=== PATIENT | male | born 1970 | race Caucasian/White ===

== ENCOUNTER 2024-03-13 15:28 | Outpatient (CLI) | payer OTHER, SELFPAY ==
[2024-03-13 16:03] LABS: Basophils # 0.1 K/mm3 (0-0.2); Basophils % 0.6 % (0.1-2.0); Eosinophils # 0.3 K/mm3 (0.0-0.4); Eosinophils % 2.8 % (0.1-12.0); Hematocrit 43.2 % (42.0-52.0); Hemoglobin 14.7 g/dL (14.1-18.0); Lymphocytes # 2.1 K/mm3 (0.7-4.5); Lymphocytes % 22.3 % (10-50); Mean Corpuscular Hemoglobin 28.8 pg (27.0-31.2); Mean Corpuscular Volume 84.8 fl (80-94); Mean Platelet Volume 7.8 fl (7.4-10.4); Monocytes # 0.5 K/mm3 (0.1-1.0); Monocytes % 5.4 % (1.7-9.3); Neutrophils # 6.5 K/mm3 (1.8-7.8); Platelet Count 239 K/mm3 (142-424); Red Cell Distribution Width 14.2 % (11.5-17.5); White Blood Count 9.5 K/mm3 (4.8-10.8)
[2024-03-13 16:24] LABS: Alanine Aminotransferase 25 U/L (12-78); Albumin Level 3.6 g/dl (3.5-5.0); Alkaline Phosphatase 78 U/L (38-126); Anion Gap 9.4 mEq/L (5-15); Aspartate Amino Transferase 22 U/L (17-59); Bilirubin,Direct 0.3 mg/dl (0.0-0.4); Bilirubin,Indirect 0.1 mg/dL (0.0-0.9); Bilirubin,Total 0.4 mg/dl (0.2-1.3); Bilirubin,Unconjugated 0.1 mg/dL (0.0-1.1); Blood Urea Nitrogen 12 mg/dl (9-20); Calcium 9.2 mg/dl (8.4-10.2); Carbon Dioxide 33 mmol/L (22.0-30.0); Chloride 99 mmol/L (98-107); Chol/HDL Ratio 3.5 (1-3.5); Cholesterol 151 mg/dl (140-200); Estimated Glomerular Filt Rate 118 ml/min (>60); GFR (African American) 142 ML/MIN (>60); Glucose 118 mg/dl (74-100); HDL Cholesterol 43 mg/dl (40-60); Iron 60 ug/dL (49-181); Magnesium 1.9 mg/dl (1.6-2.3); Potassium 4.4 mmoL/L (3.5-5.1); Sodium 137 mmol/L (136-145); Total Protein,Serum 5.9 g/dl (6.3-8.2); Triglycerides 303 mg/dl (30-150); VLDL Cholesterol 61 mg/dL (0-40)
[2024-03-13 16:33] LABS: NT Pro Brain Natriuretic Pep. < 20.0 pg/mL (0-125)
[2024-03-13 16:36] LABS: Direct LDL Cholesterol 89.15 mg/dL (100-129); Total Iron Binding Capacity 337 ug/dL (261-462)
[2024-03-13 16:41] LABS: Free T4 (Free Thyroxine) 0.84 ng/dl (0.78-2.19)
[2024-03-13 16:55] LABS: Thyroid Stimulating Hormone 1.06 uIU/mL (0.465-4.68)
[2024-03-13 16:59] LABS: Ferritin 46.7 ng/ml (17.9-464)
[2024-03-20 03:37] LABS: Renin Activity, Plasma 7.872 ng/mL/hr (0.167-5.380)
== END 2024-03-13 23:59 | disposition home or self-care (01) ==
LOC: LAB 15:30
PROVIDERS: PCP Family Medicine; Visit Provider Internal Medicine
DX: I10 Essential (primary) hypertension (principal); R06.00 Dyspnea, unspecified; R42 Dizziness and giddiness; R60.0 Localized edema; R94.31 Abnormal electrocardiogram [ECG] [EKG]; Z82.49 Family history of ischemic heart disease and other diseases of the circulatory system; R12 Heartburn
CPT/HCPCS: 36415; 80048; 80061; 80076; 82088; 82728; 83540; 83550; 83735; 83880; 84244; 84439; 84443; 85025

== ENCOUNTER 2024-03-26 08:08 | Outpatient (CLI) | payer OTHER, SELFPAY ==
--- NOTE | 2024-03-26 08:10 | CA_ITS ---
APPROVED REPORT EXAM: Comprehensive 2D, Doppler, and color-flow Echocardiogram Chief Administrative Officer: Ashley Araujo CRT Ht: 5 ft 8 in Wt: 376lbs BSA: 2.67 BP: 163/92 mmHg Indications: Shortness of Breath, Obesity, Fatigue, Peripheral Edema, Hypertension/HDD, FELIX M-Mode Dimensions RVDd 2.25 cm (0.9-2.6) LA Diam 3.73 cm (1.9-4.0) LVDd 5.29 cm (3.5-5.7) LVDs 3.59 cm (3.5-5.7) IVSd 1.85 cm (0.6-1.1) PWd 0.98 cm (0.6-1.1) EF (Teich) 59.90% FS 32.10% EDV (Teich) 134.80 mL TAPSE 1.50 (<1.7) ESV (Teich) 54.10 mL LV Diastology E Decel Time 150 (160-240 msec) E/A Ratio 1.13 MED A' 9.70 cm/s LAT A' 12.10 cm/s Aortic Valve AO Peak GR. 5.20 mmHg Mitral Valve MV E Max Zaid. 78.0 (40-130 cm/s) MV A Velocity 69.0 (40-130 cm/s) E/A Ratio 1.13 MV PHT 44.0 ms Pulmonary Valve PV Peak Velocity 67.0 (50-150 cm/s) Tricuspid Valve TR P. Velocity 154.00 cm/s RAP Estimate 10.00 mmHg RVSP 19.50 mmHg Left Ventricle The left ventricle is normal size. The left ventricular systolic function is normal. The left ventricular ejection fraction is within the normal range. There is normal left ventricular wall thickness. There is normal LV segmental wall motion. The left ventricular diastolic function is normal. LVEF is 55%. Right Ventricle The right ventricle is normal size. The right ventricular systolic function is normal. Atria The left atrium size is normal. The right atrium size is normal. There is no Doppler evidence of interatrial shunt. Aortic Valve The aortic valve opens well. There is no aortic valvular stenosis. No aortic regurgitation is present. Mitral Valve The mitral valve is normal in structure. No evidence of mitral valve stenosis. There is no mitral valve regurgitation noted. Tricuspid Valve The tricuspid valve leaflets are not well-visualized. Trace tricuspid regurgitation. There is insufficient TR jet to estimate RVSP. Pulmonic Valve The pulmonic valve leaflets are not well-visualized. Great Vessels The aortic root is normal in size. The ascending aorta is not well-visualized. IVC is normal in size and collapses >50% with inspiration. Pericardium There is no pericardial effusion. Other Information Study Quality: Technically Difficult Conclusion Technically difficult study due to poor accoustic windows. Normal biventricular systolic function. No significant valvular stenosis or regurgitation. The PV is not well-visualized. Electronically signed by : Chelly Pat MD 04/01/2024 14:36:40
--- NOTE | 2024-03-26 08:10 | CA_ITS ---
FINAL REPORT TECHNIQUE: Grayscale, color Doppler and duplex Doppler ultrasound of the kidneys, aorta and renal arteries was performed. Multiple velocities were measured. CLINICAL HISTORY: HTN,OBESITY LIMITED EXAM R/T BODY HABITUS COMPARISON: None FINDINGS: Exam limited secondary to patient body habitus. Aorta velocity: 47 cm/sec Right kidney: 11.8 cm. No evidence of hydronephrosis or mass. Right intrarenal RI: 0.63-0.71 Right renal artery velocity: 142 cm/sec. Right RAR (Renal artery-Aortic Ratio): 3.00 Left Kidney: 12.6 cm. No evidence of hydronephrosis or mass. Left intrarenal RI: 0.62-0.78 Left renal artery velocity: 91 cm/sec. Left RAR (Renal Artery-Aortic Ratio): 1.93 IMPRESSION: Exam limited secondary to patient body habitus, but no evidence of significant renal artery stenosis. Consider CTA if indicated. Reviewed, Interpreted and Dictated by Charito Wolfe MD Transcribed by Marietta Shah Authenticated and . [facility]
--- NOTE | 2024-03-26 09:16 | US_ITS ---
FINAL REPORT CLINICAL HISTORY: I10 - Essential (primary) hypertension COMPARISON: None FINDINGS: RENAL ULTRASOUND Ultrasound images of the kidneys were obtained. The right kidney measures 12.6 cm in length. The left kidney measures 11.4 cm in length. There is a likely a lower pole cyst on the left. There is no hydronephrosis bilaterally. IMPRESSION: Probable left lower pole cyst. Reviewed, Interpreted and Dictated by Charito Wolfe MD Transcribed by Marietta Shah Authenticated and [facility]
--- NOTE | 2024-03-26 09:17 | CT_ITS ---
APPROVED REPORT Voltage Regulator Assembler: CLINICAL INDICATION Chest Pain TECHNIQUE Image Acquisition: A 128 slice MDCT scanner (Qardioa View) was used for data acquisition. A noncontrast coronary calcium scan was performed. A CT attenuation threshold of 130 Hounsfield units (HU) was used for the detection of calcium in contiguous voxels of 1 sq mm in area to be counted as individual lesions. Bolus tracking in the ascending aorta with a threshold of 180 HU was performed. Immediately afterwards, ECG synchronized cardiac CT was then performed from the cardiac base to apex using retrospective gating with ECG tube current modulation. A total of 85 mL of Isovue 370 mg/mL contrast medium was administered at 5 mL/sec followed by a saline flush using a biphasic injection protocol. A tube voltage of 120 KVp was used. The patient received the following medications prior to the cardiac CT. 150 mg of oral metoprolol 15 mg of oral ivabradine 0.8 mg of sublingual nitroglycerin The average heart rate at the time of acquisition was 55 bpm and regular. Image Reconstruction Transaxial images were reconstructed at 0.67 mm slide thickness. Data was reviewed interactively on an advanced workstation capable of 2 and 3-dimensional displays in all conventional reconstruction formats, including multiplanar reformations, maximum intensity projections, curved multiplanar reformations, and volume rendered reconstructions. When applicable, selected routine images describing the relevant coronary anatomy and pathology were saved and sent to PACS. Complications None Technical Quality Overall image quality was good. Coronary artery opacification was adequate. Total DLP (Dose-Length Product) is 2325.4 mGy-cm. The reported value represents the total of one or more individual components during the CT acquisition of this date and at this time, and as such, the same value may appear in more than one CT report depending on the interpreting/reporting physicians. COMPARISON None FINDINGS CT Coronary Calcium Scoring LMA (Left Main Artery) = 0 LAD (Left Anterior Descending) = 0 LCX (Left Coronary Circumflex) = 0 RCA (Right Coronary Artery) = 0 Total Calcium Score = 0 using the AJ-130 method. The interpretation of the calcium heart score is based on the following continuum*: 0 = no calcified plaque detected (risk of coronary artery disease is very low ??? less than 5%) 1-10 = calcium detected in extremely minimal levels (risk of coronary diseases is still low ??? less than 10%) 11-100 = mild levels of plaque detected with certainty (mild or minimal narrowing of heart arteries is likely) 101-400 = definite,at least moderate levels of plaque detected (relatively high risk of a heart attack within 3-5 years) >401-999 = extensive levels of plaque detected (high risk of heart attack, high levels of vascular disease are present, high likelihood of at least one significant coronary narrowing) *The calcium heart score quantifies the burden of coronary calcification/plaque in the coronary arteries. The calcium heart score is not able to evaluate the presence or burden of non-calcified (i.e. soft) plaque. There is no identifiable calcification in the aortic valve, mitral annulus or mitral valve, pericardium, or myocardium. Coronary CT Angiography The coronary arterial system is right dominant. Quantitative Stenosis Grading: Left Main (LM): The left main originates normally from the left sinus of Valsalva. The LM bifurcates into the left anterior descending artery and left circumflex artery. The LM is patent with no evidence of atherosclerosis. Left Anterior Descending (LAD) and Diagonal Branches: The LAD gives off 3 diagonal branch(es). The LAD and its branches are patent with no evidence of atherosclerosis. There is no evidence of LAD-myocardial bridge. Left Circumflex (LCX) and Obtuse Marginals (OM): The LCX gives off 2 Obtuse Marginal (OM) branch(es). The LCX and its branches are patent with no evidence of atherosclerosis. Right Coronary Artery (RCA): The RCA originates normally from the right sinus of Valsalva. The RCA gives off a posterior descending artery (PDA) and posterolateral (PL) branches. The RCA and its branches are patent with no evidence of atherosclerosis. Non-Coronary Cardiac Findings: Analysis of the left ventricular (LV) structure and function was performed after 3-D reconstruction of the LV from axial images, with user-corrected automatic contouring for assessment of LV volumes and user-defined reconstruction from oblique planes for measurement of 3-D cardiac structure and function. -The left ventricle systolic function is normal. -There is no left atrial appendage filling defect. Two right pulmonary veins and two left pulmonary veins drain normally into the left atrium. -No pericardial thickening or calcification. -Central and branch pulmonary arteries in the [id number] are unremarkable. -Thoracic aorta within the visualized thoracic aortic-branches in the [id number] is unremarkable. Extracardiac Structures No significant extra-cardiac findings. Note, however, that this study is focused on the cardiac findings. IMPRESSION -Absence of coronary calcification with an Agatston score = 0 using the AJ-130 method. -No evidence of significant flow-limiting atherosclerosis of the coronary arteries. -No evidence of coronary anomalies or myocardial bridges. -CAD-RADS 0. Management recommendations per ACC/AHA guidelines*, as clinically appropriate. *Recommendations: CAD RADS 0: Reassurance. Consider non-atherosclerotic causes of chest pain. CAD RADS 1: Consider non-atherosclerotic causes of chest pain. Consider preventive therapy and risk factor modification. CAD RADS 2: Consider non-atherosclerotic causes of chest pain. Consider preventive therapy and risk factor modification, particularly for patients with nonobstructive plaque in multiple segments. CAD RADS 3: Consider further functional testing. Consider symptom-guided anti-ischemic and preventive pharmacotherapy as well as risk factor modification per published guideline statements. CAD RADS 4A: Consider further functional testing or invasive coronary angiography with revascularization per published guideline statements. Consider symptom-guided anti-ischemic and preventive pharmacotherapy as well as risk factor modification per published guideline statements. CAD RADS 4B: Invasive coronary angiography recommended with revascularization per published guideline statements. Consider symptom-guided anti-ischemic and preventive pharmacotherapy as well as risk factor modification per published guideline statements. CAD RADS 5: Consider invasive angiography and/or viability assessment with revascularization per published guideline statements. Consider symptom-guided anti-ischemic and preventive pharmacotherapy as well as risk factor modification per published guideline statements. CRITICAL RESULT None COMMUNICATION Per this written report The coronary and cardiac findings of this CCTA were reviewed, reported, and signed by Faizan Pat MD (Garment Folder) Conclusion Electronically signed by : Chelly Pat MD 04/01/2024 12:23:22
[2024-03-26] MEDS: IOPAMIDOL-370 (76%);100ML BOTTLE 85 ML IV (12:51)
[2024-03-26] MEDS: SODIUM CHLORIDE 0.9% 10ML SYR (RAD ONLY) 10 ML IV (12:51)
[2024-03-26] MEDS: 0.9 % SODIUM CHLORIDE 50 ML VIAL IV (12:51)
== END 2024-03-26 23:59 | disposition home or self-care (01) ==
LOC: RT 08:09
PROVIDERS: PCP Family Medicine; Visit Provider Internal Medicine
DX: I10 Essential (primary) hypertension (principal); R06.00 Dyspnea, unspecified; R42 Dizziness and giddiness; R60.0 Localized edema; R94.31 Abnormal electrocardiogram [ECG] [EKG]; R12 Heartburn; Z82.49 Family history of ischemic heart disease and other diseases of the circulatory system; R06.02 Shortness of breath
CPT/HCPCS: 75574; 76770; 93306; 93976; Q9967

== ENCOUNTER 2024-03-26 11:24 | Outpatient (CLI) | payer OTHER, SELFPAY ==
[2024-03-26 10:40] VITALS: BP 167/89; PULSE 79; RESP 18; TEMP 36.6; O2SAT 96
[2024-03-26] MEDS: METOPROLOL TARTRATE 25MG TABLET 25 MG ×2 (10:40→11:32)
[2024-03-26] MEDS: METOPROLOL TARTRATE 50MG TABLET 50 MG (10:40)
[2024-03-26 10:45] VITALS: BMI 54.7
[2024-03-26] MEDS: IVABRADINE HCL 7.5MG TABLET 15 MG PO (11:28)
[2024-03-26] MEDS: METOPROLOL TARTRATE 50MG TABLET PO (11:32)
[2024-03-26 12:30] VITALS: BP 172/86; PULSE 60; RESP 18; O2SAT 97
[2024-03-26 12:39] VITALS: BP 144/87; PULSE 61; RESP 18; O2SAT 98
[2024-03-26] MEDS: NITROGLYCERIN 0.4MG SL TABLET SL (12:39)
[2024-03-26 12:42] VITALS: BP 133/72; PULSE 59; O2SAT 98
[2024-03-26 12:45] VITALS: BP 107/66; PULSE 60; O2SAT 98
== END 2024-03-26 13:00 | disposition home or self-care (01) ==
PROVIDERS: PCP Family Medicine; Visit Provider Internal Medicine
DX: R94.31 Abnormal electrocardiogram [ECG] [EKG] (principal); R06.02 Shortness of breath

== ENCOUNTER 2024-04-01 15:12 | Outpatient (CLI) | payer OTHER, SELFPAY ==
[2024-04-01 16:02] LABS: Anion Gap 6.3 mEq/L (5-15); Blood Urea Nitrogen 14 mg/dl (9-20); Calcium 9.1 mg/dl (8.4-10.2); Carbon Dioxide 34 mmol/L (22.0-30.0); Chloride 101 mmol/L (98-107); Estimated Glomerular Filt Rate 118 ml/min (>60); GFR (African American) 142 ML/MIN (>60); Glucose 147 mg/dl (74-100); Potassium 4.3 mmoL/L (3.5-5.1); Sodium 137 mmol/L (136-145); Uric Acid 5.6 mg/dl (3.5-8.5)
[2024-04-01 16:10] LABS: Erythrocyte Sedimentation Rate 20 mm/hr (0-20)
[2024-04-02 05:11] LABS: RA Latex Turbid. <10.0 IU/mL (<14.0)
[2024-04-02 11:12] LABS: Anti-Centromere B Antibodies <0.2 AI (0.0-0.9); Anti-DNA (DS) Ab Qn <1 IU/mL (0-9); Anti-Jo-1 <0.2 AI (0.0-0.9); Anti-Smith Antibody <0.2 AI (0.0-0.9); Antichromatin Antibodies <0.2 AI (0.0-0.9); Antiscleroderma-70 Antibodies <0.2 AI (0.0-0.9); RNP Antibodies <0.2 AI (0.0-0.9); Sjogren's Anti-SS-A <0.2 AI (0.0-0.9); Sjogren's Anti-SS-B <0.2 AI (0.0-0.9)
[2024-04-02 15:11] LABS: Anti-Cyclic Citrullinated Pept 6 units (0-19)
[2024-04-04 08:26] LABS: Antinuclear Antibodies, IFA Negative (.)
== END 2024-04-01 23:59 | disposition home or self-care (01) ==
LOC: LAB 15:13
PROVIDERS: PCP Family Medicine; Visit Provider Internal Medicine
DX: G47.33 Obstructive sleep apnea (adult) (pediatric) (principal); Z82.49 Family history of ischemic heart disease and other diseases of the circulatory system; R94.31 Abnormal electrocardiogram [ECG] [EKG]; R60.0 Localized edema; R42 Dizziness and giddiness; R06.09 Other forms of dyspnea; I10 Essential (primary) hypertension; R12 Heartburn; Z87.891 Personal history of nicotine dependence
CPT/HCPCS: 36415; 80048; 84550; 85651; 86038; 86140; 86200; 86225; 86235; 86431

== ENCOUNTER 2024-04-23 08:23 | Outpatient (CLI) | payer OTHER, SELFPAY ==
--- NOTE | 2024-04-23 08:24 | CT_ITS ---
FINAL REPORT TECHNIQUE: Thin section axial CT with contrast with multiplanar reconstruction This study was performed with techniques to keep radiation doses as low as reasonably achievable, (ALARA). Individualized dose reduction techniques using automated exposure control or adjustment of mA and/or kV according to the patient''s size were employed. CLINICAL HISTORY: look for lung disease FINDINGS: Pulmonary vessels are suboptimally enhanced for detection of pulmonary embolism. Thoracic aorta shows no dissection or aneurysm. No pulmonary mass or infiltrate is present. There is no significant pleural effusion. There is no significant pericardial effusion. No mediastinal or hilar adenopathy is present. IMPRESSION: Unremarkable. Suboptimal assessment of the pulmonary vessels. Reviewed, Interpreted and Dictated by Kannan Hammer MD Transcribed by Kitty Mehta Authenticated and [facility]
[2024-04-23] MEDS: 0.9 % SODIUM CHLORIDE 50 ML VIAL IV (08:46)
[2024-04-23] MEDS: SODIUM CHLORIDE 0.9% 10ML SYR (RAD ONLY) 10 ML IV (08:47)
[2024-04-23] MEDS: IOPAMIDOL-370 (76%);100ML BOTTLE 80 ML IV (08:47)
== END 2024-04-23 23:59 | disposition home or self-care (01) ==
LOC: RAD 08:24
PROVIDERS: PCP Family Medicine; Visit Provider Internal Medicine
DX: R94.31 Abnormal electrocardiogram [ECG] [EKG] (principal); R42 Dizziness and giddiness; R06.09 Other forms of dyspnea
CPT/HCPCS: 71275; Q9967

== ENCOUNTER 2024-06-05 12:49 | Outpatient (CLI) | payer OTHER, SELFPAY ==
--- NOTE | 2024-06-05 12:52 | US_ITS ---
FINAL REPORT CLINICAL HISTORY: Leg pain/numbness, Morbid obesity FINDINGS: ANKLE-BRACHIAL PRESSURE INDICES Pressure indices are as follows: RIGHT LOWER EXTREMITY: Ankle-brachial pressure index: 1.1 Comments: Normal LEFT LOWER EXTREMITY: Ankle-brachial pressure index: 1 Comments: Normal CONCLUSION: No evidence of significant obstructive peripheral vascular disease of the lower extremities Reviewed, Interpreted and Dictated by Lg Higuera MD Transcribed by Hoa Virk Authenticated and [facility]
--- NOTE | 2024-06-05 12:52 | CA_ITS ---
FINAL REPORT TECHNIQUE: Arterial duplex Doppler evaluation of the lower extremities with spectral analysis. CLINICAL HISTORY: CLAUDICATION AND REST PAIN BILATERAL LE'S,EX-SMOKER,HTN,OBESITY COMPARISON: None FINDINGS: Right lower extremity, flow velocities (cm per second): Common femoral artery: 91.3 Proximal SFA: 106 Distal SFA: 92 Popliteal: 65 Anterior tibial artery: 87 Posterior tibial artery: 82 Left lower extremity, flow velocities (cm per second): Common femoral artery: 121 Proximal SFA: 103 Distal SFA: 105 Popliteal: 55 Anterior tibial artery: 107 Posterior tibial artery: 79 IMPRESSION: Waveforms are noted to be biphasic and triphasic. No levels of stenosis or occlusion are identified. Reviewed, Interpreted and Dictated by Lg Higuera MD Transcribed by Hoa Virk Authenticated and . [facility]
== END 2024-06-05 23:59 | disposition home or self-care (01) ==
LOC: RT 12:50
PROVIDERS: PCP Family Medicine; Visit Provider Internal Medicine
DX: M79.604 Pain in right leg (principal); M79.605 Pain in left leg; R20.0 Anesthesia of skin
CPT/HCPCS: 93923; 93925

== ENCOUNTER 2024-06-09 18:36 | Emergency (ER) | payer OTHER, SELFPAY ==
[2024-06-09 18:36] VITALS: BP 95/62; PULSE 83; RESP 16; TEMP 36.8; O2SAT 99; BMI 57.7
--- NOTE | 2024-06-09 18:36 | ED_ITS ---
<Statement entered by Amparo Pena DO - 06/09/24 22:25> I was consulted by the ANNA MARIE, and we discussed the complexity of the problems being addressed. I approved the treatment and management plan for this patient's care in the emergency department, thus performing a substantive portion of the medical decision making. Amparo Pena DO Discharge Plan Disposition Patient Disposition: Home, Self-Care Condition: Good Prescriptions Prescriptions: No Action Jardiance 10 mg tablet 10 mg PO DAILY Qty: 30 3RF cyclobenzaprine 10 mg tablet 10 mg PO DAILY venlafaxine 75 mg capsule,extended release 24hr 75 mg PO TID tramadol 50 mg tablet 50 mg PO HS PRN (Reason: Sleep) Patient Comments: TAKE 1 TO 2 TABLET BY MOUTH EVERY NIGHT AT NEEDED ropinirole 2 mg tablet 6 mg PO HS esomeprazole magnesium 40 mg capsule,delayed release(DR/EC) 40 mg PO DAILY hydrochlorothiazide 25 mg tablet 25 mg PO DAILY Patient Comments: TAKE 1 TABLET BY MOUTH EVERY DAY lisinopril 40 mg tablet 40 mg PO DAILY Patient Comments: TAKE 1 TABLET (40 MG) BY MOUTH 1 (ONE) TIME EACH DAY. amlodipine 5 mg tablet 5 mg PO DAILY Qty: 90 3RF spironolactone [Aldactone] 25 mg tablet 25 mg PO DAILY Qty: 30 2RF Referrals Follow up/Referrals: Tosha Dodge MD [Primary Care Provider] - See instructions Anny Davidson APRN [Nurse Practitioner] - See instructions Activity Restrictions/Add. Instructions Additional Instructions/Restrictions: Follow-up with your PCP within 48 hours for recheck of your symptoms and workup for possible neurologic causes of your dizziness. Please follow-up with cardiology as well however I have also referred you to ear nose and throat for evaluation of peripheral causes of dizziness. Clinical Impressions Clinical Impression: Dizziness Print Language Print Language: Frisian Discharge ED Provider: Amparo Pena General Adult HPI <DOROTHY Art - Last Filed: 06/09/24 20:28> General Chief complaint: Shortness of Breath/Dyspnea Stated complaint: SOA Time Seen by Provider: 06/09/24 18:39 History of Present Illness HPI narrative: Patient presents for evaluation of dizziness. Patient states that he was watching the [employer] this evening and had a sudden onset of dizziness. He reports that he was having difficulty focusing but did not lose vision. He did not lose consciousness but did have an episode of bowel incontinence. He had no chest pain shortness of breath fever chills hemoptysis hematochezia melena nausea or vomiting. Patient reports that the symptoms have been intermittent now for months but has not been able to find a diagnosis. There has been an investigation from a cardiovascular standpoint that has been thus far unsuccessful in uncovering or cause. He has not seen ENT or neurology. Related Data Home Medications ?Medication ?Instructions ?Recorded ?Confirmed cyclobenzaprine 10 mg tablet 10 mg PO DAILY 03/13/24 06/09/24 esomeprazole magnesium 40 mg 40 mg PO DAILY 03/13/24 06/09/24 capsule,delayed release hydrochlorothiazide 25 mg tablet 25 mg PO DAILY 03/13/24 06/09/24 lisinopril 40 mg tablet 40 mg PO DAILY 03/13/24 06/09/24 ropinirole 2 mg tablet 6 mg PO HS 03/13/24 06/09/24 tramadol 50 mg tablet 50 mg PO HS PRN Sleep 03/13/24 06/09/24 venlafaxine 75 mg capsule,extended 75 mg PO TID 03/13/24 06/09/24 release 24 hr Previous Rx's ?Medication ?Instructions ?Recorded amlodipine 5 mg tablet 5 mg PO DAILY #90 tabs 03/13/24 spironolactone 25 mg tablet 25 mg PO DAILY #30 tabs 04/01/24 (Aldactone) empagliflozin 10 mg tablet 10 mg PO DAILY #30 tabs 05/28/24 (Jardiance) Allergies Allergy/AdvReac Type Severity Reaction Status Date / Time From PERCOCET Allergy Mild NA-NAUSEA/V Uncoded 05/28/24 15:02 OMITING PENICILLIN AdvReac Severe S-SWELLS-OR Uncoded 05/28/24 15:02 AL/THROAT [facility] <DOROTHY Art - Last Filed: 06/09/24 20:28> [facility] Disclaimer: The information contained in this section may have been updated after the patient was seen, as this information can be updated by other users. Medical History (Updated 06/09/24 @ 20:11 by DOROTHY Art) (HFpEF) heart failure with preserved ejection fraction FELIX (obstructive sleep apnea) Family history of ischemic heart disease Abnormal electrocardiogram [ECG] [EKG] HTN (hypertension) Family History Other No significant family history Social History Smoking Status: Current some day smoker alcohol intake: never current occupational status: disabled Travel in the last 8 weeks: None Have you lived/traveled outside US in past 30 days?: No Contact w/someone who lives/traveled outside US past 30 days?: No Exposure to someone with infectious disease in past 14 days?: No Do you have a fever (greater than 100.4 F or 38 C)?: No Have you tested positive for COVID-19: No Exposed to someone with COVID-19 in past 14 days?: No Do you have a sore throat?: No Do you have a cough?: No Do you have any weakness?: No Do you have any diarrhea?: No Are you experiencing any unusual bleeding?: No Do you have any muscle aches/pain?: No Do you have any abdominal pain?: No Are you experiencing loss of taste or smell?: No Other Medical History Have you received the Flu Vaccine for this season: No Have you received the Pneumonia Vaccine: No <DOROTHY Art - Last Filed: 06/09/24 20:28> ROS Obtained: Yes Systems reviewed as appropriate & no additional complaints except as documented Physical Exam <DOROTHY Art - Last Filed: 06/09/24 20:28> General General appearance: alert and in no apparent distress Eye Eye exam: Present normal appearance, PERRL and EOMI Respiratory Respiratory exam: Present normal lung sounds bilaterally Cardiovascular Cardiovascular exam: Present regular rate Neurological Exam Neurological exam: Present alert and oriented X3 Medical Decision Making <DOROTHY Art - Last Filed: 06/09/24 20:28> Medical Records Medical records reviewed: Yes I reviewed the patient's medical records. Screening: Per USPSTF and CDC recommendations, given the prevalence of disease in our region, it is our hospital?s policy to screen for HIV and viral Hepatitis for all patients aged 18 and over and those with ongoing risk factors. José Luis Inquiry Pt receiving controlled substance: No Vital Signs: 06/09/24 18:36 06/09/24 19:45 Temperature 98.2 F Temperature Source Oral Pulse Rate 83 Pulse Rate [Radial] 83 Respiratory Rate 16 18 Blood Pressure 104/49 L Blood Pressure [Right Arm] 95/62 L Blood Pressure Mean [Right Arm] 73 Blood Pressure Source [Right Arm] Automatic Cuff Blood Pressure Position [Right Arm] Supine 02 Sat by Pulse Oximetry 99 96 Oxygen Delivery Method Room Air Lab Data Lab results reviewed: Yes I reviewed the patient's lab results. Lab Results 06/09/24 18:39: WBC 12.6 H, RBC 5.08, Hgb 14.0 L, Hct 43.8, MCV 86.2, MCH 27.6, MCHC 32.0, RDW 14.3, Plt Count 234, MPV 10.1, Neut % (Auto) 70.1, Lymph % (Auto) 21.6, [place] % (Auto) 6.5, Eos % (Auto) 1.2, Baso % (Auto) 0.3, Neut # (Auto) 8.8 H, Lymph # (Auto) 2.7, [place] # (Auto) 0.8, Eos # (Auto) 0.2, Baso # (Auto) 0.0, PT 9.8, INR 0.88 L, APTT 18.8 L, Sodium 135 L, Potassium 4.6, Chloride 99, Carbon Dioxide 28, Anion Gap 12.6, BUN 28 H, Creatinine 0.80, Estimated Creat Clear 101, Estimated GFR 100, Est GFR ( Amer) 121, Glucose 112 H, Calcium 9.0, Magnesium 1.9, Total Bilirubin 0.3, AST 30, ALT 30, Alkaline Phosphatase 71, Troponin I < 0.01, NT-Pro-B Natriuret Pep < 20.0, Total Protein 6.8, Albumin 4.0, Globulin 2.8, Albumin/Globulin Ratio 1.4, TSH 1.01, Thyroxine (T4) 9.7 06/09/24 18:39 06/09/24 18:39 Orders (Tests/Meds): ED MEDICATIONS Generic Name Dose Route Start Last Admin Trade Name Freq PRN Reason Stop Dose Admin Sodium Chloride 10 ml 06/09/24 19:57 06/09/24 19:58 Sodium Chloride 0.9% 10ml Syr (Rad Only) IV 07/09/24 19:56 10 ml NEEDED PRN Administration Maintain IV Site Discontinued Medications Generic Name Dose Route Start Last Admin Trade Name Freq PRN Reason Stop Dose Admin Iopamidol 150 ml 06/09/24 19:57 06/09/24 19:58 Iopamidol-370 (76%);100ml Bottle IV 06/09/24 19:58 150 ml ONCE ONE Administration Sodium Chloride 80 ml 06/09/24 19:57 06/09/24 19:58 0.9 % Sodium Chloride 50 Ml Vial IV 06/09/24 19:58 80 ml ONCE ONE Administration ORDERS Category Date Time Status CT angio chest PE protocol Stat Cat Scan 06/09/24 19:[address] angio head Stat Cat Scan 06/09/24 19:[address] angio neck Stat Cat Scan 06/09/24 19:[address] head/brain wo con Stat Cat Scan 06/09/24 19:01 Taken Activated Partial Thrombo Time Stat Lab 06/09/24 18:39 Completed BNP [NT Pro Brain Natriuretic Pep.] Stat Lab 06/09/24 18:39 Completed CBC w/Auto Diff [Complete Blood Count Auto Diff] Stat Lab 06/09/24 18:39 Completed CMP [Comprehensive Metabolic Panel] Stat Lab 06/09/24 18:39 Completed HIV Combo Stat Lab 06/09/24 19:00 Received Hepatitis C Ab Qual. W/ RFX Stat Lab 06/09/24 19:00 Received MAG [Magnesium] Stat Lab 06/09/24 18:39 Completed Prothrombin Time INR Stat Lab 06/09/24 18:39 Completed T4 (Thyroxine) Stat Lab 06/09/24 18:39 Completed TSH [Thyroid Stimulating Hormone] Stat Lab 06/09/24 18:39 Completed Trop I [Troponin I] Stat Lab 06/09/24 18:39 Completed Troponin I Q3H Lab 06/09/24 21:45 Ordered Troponin I Q3H Lab 06/10/24 00:45 Ordered Medical Decision Narrative: In summary patient is a 54-year-old male who presents to the emergency department for evaluation of dizziness. Patient is initially hypotensive with a blood pressure of 95/62 with a pulse of 83 normal sinus rhythm on the bedside monitor respiratory rate 16 satting at 99% on room air upon arrival, afebrile at 98.2. Physical exam is currently unremarkable and nonfocal including no dizziness currently and I am unable to provoke it, patient has full range of motion of the C-spine, there is no carotid bruits noted. Pupils are equal round reactive to light and accommodation. He has no focal neurologic deficits. Breath sounds are clinical bilaterally to the bases without adventitious sounds or increased work of breathing. Heart sounds are S1-S2 without murmurs gallops rubs or thrills. Differential diagnosis includes BPPV, vascular abnormality versus an advertent iatrogenic hypotension given a systolic blood pressure of 95 on presentation versus arrhythmia etc. Initial workup will be conducted with hematologic labs twelve-lead EKG CT scan of the head without contrast CTA of the head and neck. Initial interventions were considered however patient currently is asymptomatic thus deferred for now. Initial workup reviewed by me shows patient has a white count of 12.6 normal H&H absolute neutrophil count is 8.8, INR 0.88, the remainder of his hematologic labs are nonactionable including a negative troponin negative NT proBNP normal TSH. My informal TURB Tatian of his imaging shows no acute intracranial abnormality or vascular abnormality prior to radiology read.. Upon repeat evaluation patient has had no recurrence of his symptoms while in the ER. Given this patient is referred back to cardiology for reevaluation of his blood pressure control as it seems to be too strict but also referred to ENT for ALMENDAREZ of BPPV. Patient is to follow-up with PCP for referral for central neurologic causes of his symptoms. <Amparo Pena, DO - Last Filed: 06/09/24 18:41> Vital Signs: 06/09/24 18:36 06/09/24 19:45 Temperature 98.2 F Temperature Source Oral Pulse Rate 83 Pulse Rate [Radial] 83 Respiratory Rate 16 18 Blood Pressure 104/49 L Blood Pressure [Right Arm] 95/62 L Blood Pressure Mean [Right Arm] 73 Blood Pressure Source [Right Arm] Automatic Cuff Blood Pressure Position [Right Arm] Supine 02 Sat by Pulse Oximetry 99 96 Oxygen Delivery Method Room Air Lab Data Lab Results 06/09/24 18:39: WBC 12.6 H, RBC 5.08, Hgb 14.0 L, Hct 43.8, MCV 86.2, MCH 27.6, MCHC 32.0, RDW 14.3, Plt Count 234, MPV 10.1, Neut % (Auto) 70.1, Lymph % (Auto) 21.6, [place] % (Auto) 6.5, Eos % (Auto) 1.2, Baso % (Auto) 0.3, Neut # (Auto) 8.8 H, Lymph # (Auto) 2.7, [place] # (Auto) 0.8, Eos # (Auto) 0.2, Baso # (Auto) 0.0, PT 9.8, INR 0.88 L, APTT 18.8 L, Sodium 135 L, Potassium 4.6, Chloride 99, Carbon Dioxide 28, Anion Gap 12.6, BUN 28 H, Creatinine 0.80, Estimated Creat Clear 101, Estimated GFR 100, Est GFR ( Amer) 121, Glucose 112 H, Calcium 9.0, Magnesium 1.9, Total Bilirubin 0.3, AST 30, ALT 30, Alkaline Phosphatase 71, Troponin I < 0.01, NT-Pro-B Natriuret Pep < 20.0, Total Protein 6.8, Albumin 4.0, Globulin 2.8, Albumin/Globulin Ratio 1.4, TSH 1.01, Thyroxine (T4) 9.7 Orders (Tests/Meds): ED MEDICATIONS Generic Name Dose Route Start Last Admin Trade Name Fremaria esther PRN Reason Stop Dose Admin Sodium Chloride 10 ml 06/09/24 19:57 06/09/24 19:58 Sodium Chloride 0.9% 10ml Syr (Rad Only) IV 07/09/24 19:56 10 ml NEEDED PRN Administration Maintain IV Site Discontinued Medications Generic Name Dose Route Start Last Admin Trade Name Freq PRN Reason Stop Dose Admin Iopamidol 150 ml 06/09/24 19:57 06/09/24 19:58 Iopamidol-370 (76%);100ml Bottle IV 06/09/24 19:58 150 ml ONCE ONE Administration Sodium Chloride 80 ml 06/09/24 19:57 06/09/24 19:58 0.9 % Sodium Chloride 50 Ml Vial IV 06/09/24 19:58 80 ml ONCE ONE Administration ORDERS Category Date Time Status CT angio chest PE protocol Stat Cat Scan 06/09/24 19:[address] angio head Stat Cat Scan 06/09/24 19:[address] angio neck Stat Cat Scan 06/09/24 19:[address] head/brain wo con Stat Cat Scan 06/09/24 19:01 Taken Activated Partial Thrombo Time Stat Lab 06/09/24 18:39 Completed BNP [NT Pro Brain Natriuretic Pep.] Stat Lab 06/09/24 18:39 Completed CBC w/Auto Diff [Complete Blood Count Auto Diff] Stat Lab 06/09/24 18:39 Completed CMP [Comprehensive Metabolic Panel] Stat Lab 06/09/24 18:39 Completed HIV Combo Stat Lab 06/09/24 19:00 Received Hepatitis C Ab Qual. W/ RFX Stat Lab 06/09/24 19:00 Received MAG [Magnesium] Stat Lab 06/09/24 18:39 Completed Prothrombin Time INR Stat Lab 06/09/24 18:39 Completed T4 (Thyroxine) Stat Lab 06/09/24 18:39 Completed TSH [Thyroid Stimulating Hormone] Stat Lab 06/09/24 18:39 Completed Trop I [Troponin I] Stat Lab 06/09/24 18:39 Completed Troponin I Q3H Lab 06/09/24 21:45 Ordered Troponin I Q3H Lab 06/10/24 00:45 Ordered ECG Data Tracing #1: I reviewed this ECG and interpreted as documented below: Normal sinus rhythm with a ventricular rate of [address] changes concerning for STEMI. Normal intervals. ECG initial impression date: 06/09/24 ECG initial impression time: 18:35 Critical Care <DOROTHY Art - Last Filed: 06/09/24 20:28> Critical Care Time Critical Care Time: No
--- NOTE | 2024-06-09 18:36 | ECG_ITS ---
APPROVED REPORT Exam: Resting ECG HR:79 bpm ECG Measurements Heart Rate 79 AXES IN 145 P 48 QRSd 110 QRS 36 QT 364 T 42 QTc 398 Conclusion SINUS RHYTHM LOW QRS VOLTAGE IN PRECORDIAL LEADS [QRS DEFLECTION < 1.0 mV IN CHEST LEADS] No STEMI Electronically signed by : JOSR TORRES, 06/11/2024 06:54:25
--- NOTE | 2024-06-09 18:41 | PC.NURSE ---
FSBS IS 110 @3921.
[2024-06-09 18:49] LABS: Basophils % 0.3 % (0.1-2.0); Eosinophils # 0.2 K/mm3 (0.0-0.4); Eosinophils % 1.2 % (0.1-12.0); Hematocrit 43.8 % (42.0-52.0); Lymphocytes # 2.7 K/mm3 (0.7-4.5); Lymphocytes % 21.6 % (10-50); Mean Corpuscular Hemoglobin 27.6 pg (27.0-31.2); Mean Corpuscular Volume 86.2 fl (80-94); Mean Platelet Volume 10.1 fl (7.4-10.4); Monocytes # 0.8 K/mm3 (0.1-1.0); Monocytes % 6.5 % (1.7-9.3); Neutrophils # 8.8 K/mm3 (1.8-7.8); Neutrophils % 70.1 % (37.0-80.0); Platelet Count 234 K/mm3 (142-424); Red Blood Count 5.08 M/mm3 (4.60-6.20); Red Cell Distribution Width 14.3 % (11.5-17.5); White Blood Count 12.6 K/mm3 (4.8-10.8)
--- NOTE | 2024-06-09 19:00 | CT_ITS ---
PROCEDURE INFORMATION: Exam: CTA Head With Contrast, Arteriography Exam date and time: 06/09/2024 8:00 PM Age: 54 years old Clinical indication: Dizziness and giddiness TECHNIQUE: Imaging protocol: Computed tomographic angiography of the head with contrast. Exam focused on the arteries. 3D rendering (Not supervised by radiologist): MIP and/or 3D reconstructed images were created by the technologist. Radiation optimization: All CT scans at this facility use at least one of these dose optimization techniques: automated exposure control; mA and/or kV adjustment per patient size (includes targeted exams where dose is matched to clinical indication); or iterative reconstruction. Contrast material: ISOUVE 370; Contrast volume: 80 ml; Contrast route: INTRAVENOUS (IV); COMPARISON: CT ANGIO HEAD 06/09/2024 8:00 PM FINDINGS: ANTERIOR CIRCULATION: Right internal carotid artery: Intracranial segment is patent with no significant stenosis. No aneurysm. Right middle cerebral artery: No occlusion or significant stenosis. No aneurysm. Right anterior cerebral artery: No occlusion or significant stenosis. No aneurysm. Left internal carotid artery: Intracranial segment is patent with no significant stenosis. No aneurysm. Left middle cerebral artery: No occlusion or significant stenosis. No aneurysm. Left anterior cerebral artery: No occlusion or significant stenosis. No aneurysm. POSTERIOR CIRCULATION: Right vertebral artery: No occlusion or significant stenosis. No aneurysm. Left vertebral artery: No occlusion or significant stenosis. No aneurysm. Basilar artery: No occlusion or significant stenosis. No aneurysm. Right posterior cerebral artery: No occlusion or significant stenosis. No aneurysm. Left posterior cerebral artery: No occlusion or significant stenosis. No aneurysm. Brain: No definite mass, mass effect, or midline shift. Cerebral ventricles: No ventriculomegaly. Bones/joints: Unremarkable. No acute fracture. Soft tissues: Unremarkable. IMPRESSION: No large vessel stenosis or occlusion.
--- NOTE | 2024-06-09 19:00 | CT_ITS ---
PROCEDURE INFORMATION: Exam: CTA Neck With Contrast Exam date and time: 06/09/2024 8:00 PM Age: 54 years old Clinical indication: Dizziness and giddiness TECHNIQUE: Imaging protocol: Computed tomographic angiography of the neck with contrast. Exam focused on the cervical segments of the vasculature. 3D rendering (Not supervised by radiologist): MIP and/or 3D reconstructed images were created by the technologist. Radiation optimization: All CT scans at this facility use at least one of these dose optimization techniques: automated exposure control; mA and/or kV adjustment per patient size (includes targeted exams where dose is matched to clinical indication); or iterative reconstruction. Contrast material: ISOUVE 370; Contrast volume: 80 ml; Contrast route: INTRAVENOUS (IV); COMPARISON: CT ANGIO HEAD 06/09/2024 8:00 PM FINDINGS: Right common carotid artery: No stenosis. No dissection or occlusion. Right internal carotid artery: No stenosis of the extracranial segment. No dissection or occlusion. Right external carotid artery: No occlusion or stenosis of the origin. Left common carotid artery: No stenosis. No dissection or occlusion. Left internal carotid artery: No stenosis of the extracranial segment. No dissection or occlusion. Left external carotid artery: No occlusion or stenosis of the origin. Right vertebral artery: No stenosis. No dissection or occlusion. Left vertebral artery: No stenosis. No dissection or occlusion. Soft tissues: Normal. No significant soft tissue swelling. Bones/joints: No acute fracture. IMPRESSION: No stenosis or occlusion. REFERENCES: NASCET CRITERIA. The degree of stenosis in the cervical segment of the internal carotid artery is based on NASCET criteria. Normal is no stenosis. Mild is less than 50% stenosis. Moderate is 50-69% stenosis. Severe is 70% to 99% stenosis. Total occlusion is no detectable patent lumen.
[2024-06-09 19:01] LABS: Chloride 99 mmol/L (98-107)
--- NOTE | 2024-06-09 19:01 | CT_ITS ---
PROCEDURE INFORMATION: Exam: CT Head Without Contrast Exam date and time: 06/09/2024 7:52 PM Age: 54 years old Clinical indication: Dizziness TECHNIQUE: Imaging protocol: Computed tomography of the head without contrast. Radiation optimization: All CT scans at this facility use at least one of these dose optimization techniques: automated exposure control; mA and/or kV adjustment per patient size (includes targeted exams where dose is matched to clinical indication); or iterative reconstruction. COMPARISON: HEADWO CT head/brain wo con 07/15/2018 8:31 PM FINDINGS: Brain: Normal. No hemorrhage. Unremarkable white matter. No mass effect. Cerebral ventricles: No ventriculomegaly. Paranasal sinuses: Visualized sinuses are unremarkable. No fluid levels. Mastoid air cells: Visualized mastoid air cells are well aerated. Bones: Unremarkable. No acute fracture. Soft tissues: Unremarkable. IMPRESSION: No acute intracranial abnormality.
[2024-06-09 19:02] LABS: Potassium 4.6 mmoL/L (3.5-5.1); Sodium 135 mmol/L (136-145)
[2024-06-09 19:04] LABS: Alanine Aminotransferase 30 U/L (12-78); Alkaline Phosphatase 71 U/L (38-126); Anion Gap 12.6 mEq/L (5-15); Aspartate Amino Transferase 30 U/L (17-59); Bilirubin,Total 0.3 mg/dl (0.2-1.3); Blood Urea Nitrogen 28 mg/dl (9-20); Carbon Dioxide 28 mmol/L (22.0-30.0); Creatinine Clearance Estimated 101 mL/min (50-200); Estimated Glomerular Filt Rate 100 ml/min (>60); GFR (African American) 121 ML/MIN (>60)
[2024-06-09 19:05] LABS: Albumin/Globulin Ratio 1.4 (1.1-1.8); Globulin 2.8 g/dL (1.3-3.2); Glucose 112 mg/dl (74-100); Magnesium 1.9 mg/dl (1.6-2.3); Total Protein,Serum 6.8 g/dl (6.3-8.2)
--- NOTE | 2024-06-09 19:10 | CT_ITS ---
PROCEDURE INFORMATION: Exam: CTA Chest With Contrast Exam date and time: 06/09/2024 8:04 PM Age: 54 years old Clinical indication: Other: Presyncope, dizziness TECHNIQUE: Imaging protocol: Computed tomographic angiography of the chest with contrast. Exam focused on the arteries. 3D rendering (Not supervised by radiologist): MIP and/or 3D reconstructed images were created by the technologist. Radiation optimization: All CT scans at this facility use at least one of these dose optimization techniques: automated exposure control; mA and/or kV adjustment per patient size (includes targeted exams where dose is matched to clinical indication); or iterative reconstruction. Contrast material: ISOUVE 370; Contrast volume: 70 ml; Contrast route: INTRAVENOUS (IV); COMPARISON: CT ANGIO CHEST PE PROTOCOL 04/23/2024 8:30 AM FINDINGS: Pulmonary arteries: No CT evidence of acute pulmonary embolus. Aorta: No aortic dissection. Thyroid: Hypodense left thyroid nodule measures 12 mm. Lungs: Unremarkable. No consolidation. No masses. Pleural spaces: No pleural effusion. No pneumothorax. Heart: Unremarkable. No cardiomegaly. No pericardial effusion. Coronary arteries: No coronary artery calcifications. Lymph nodes: Unremarkable. No enlarged lymph nodes. Bones/joints: Unremarkable. No acute fracture. Soft tissues: Obesity causes mottling artifact. IMPRESSION: 1. No visible acute intrathoracic abnormality. 2. No acute pulmonary embolus or aortic dissection. COMMENTS: Consistent with the [employer]'s Incidental Findings Committee white paper (J Am Marilu Radiol 2015): In patients aged 35 years and older with an incidental thyroid nodule equal to or greater than 1.[address], MRI or extrathyroidal US, further evaluation with dedicated thyroid US is recommended for patients with normal life expectancy and without comorbidities. For smaller nodules without suspicious features, no further evaluation or follow up is recommended.
[2024-06-09 19:14] LABS: NT Pro Brain Natriuretic Pep. < 20.0 pg/mL (0-125)
--- NOTE | 2024-06-09 19:15 | PC.NURSE ---
Patient resting; states no needs at this time.
[2024-06-09 19:17] LABS: Troponin I < 0.01 ng/ml (0.00-0.034)
[2024-06-09 19:19] LABS: INR 0.88 (0.9-1.1); Prothrombin Time 9.8 seconds (9.2-12.1)
[2024-06-09 19:20] LABS: Activated Partial Thrombo Time 18.8 seconds (22.5-28.5)
[2024-06-09 19:21] LABS: T4 (Thyroxine) 9.7 ug/dl (5.53-11.0)
[2024-06-09 19:35] LABS: Thyroid Stimulating Hormone 1.01 uIU/mL (0.465-4.68)
[2024-06-09 19:45] VITALS: BP 104/49; PULSE 83; RESP 18; O2SAT 96
--- NOTE | 2024-06-09 19:52 | PC.NURSE ---
Pt to CT scan via stretcher
[2024-06-09] MEDS: SODIUM CHLORIDE 0.9% 10ML SYR (RAD ONLY) 10 ML IV (19:58)
[2024-06-09] MEDS: IOPAMIDOL-370 (76%);100ML BOTTLE 150 ML IV (19:58)
[2024-06-09] MEDS: 0.9 % SODIUM CHLORIDE 50 ML VIAL 80 ML IV (19:58)
--- NOTE | 2024-06-09 20:14 | PC.NURSE ---
patient resting. States no needs at this time.
[2024-06-09 20:24] VITALS: BP 122/63; PULSE 79; RESP 18; O2SAT 98
[2024-06-09 20:48] VITALS: BP 118/72; PULSE 72; RESP 16; TEMP 36.6; O2SAT 98
--- NOTE | 2024-06-09 20:49 | PC.NURSE ---
Patient IV removed. Catheter tip intact. Bleeding controlled.
[2024-06-09 21:11] LABS: HIV Combo NEGATIVE (Negative)
[2024-06-09 22:36] LABS: Hepatitis C Ab Qual. W/ RFX NEGATIVE (Negative)
== END 2024-06-09 20:50 | disposition home or self-care (01) ==
PROVIDERS: Emergency Provider Emergency Medicine; PCP Family Medicine
DX: R42 Dizziness and giddiness (principal); R06.02 Shortness of breath; R15.9 Full incontinence of feces; Z72.0 Tobacco use
CPT/HCPCS: 70450; 70496; 70498; 71275; 80053; 83735; 83880; 84436; 84443; 84484; 85025; 85610; 85730; 86803; 87389; 93005; 99285; Q9967

== ENCOUNTER 2024-06-13 13:45 | Outpatient (CLI) | payer OTHER, SELFPAY ==
--- NOTE | 2024-06-13 13:45 | MR_ITS ---
PROCEDURE INFORMATION: Exam: MR Lumbar Spine Without and With Contrast Exam date and time: 06/13/2024 1:47 PM Age: 54 years old Clinical indication: Low back pain TECHNIQUE: Imaging protocol: Magnetic resonance imaging of the lumbar spine without and with contrast. Contrast material: PROHANCE; Contrast volume: 30 ml; Contrast route: IV; COMPARISON: US KIDNEY 03/26/2024 10:08 AM FINDINGS: Bones/joints: The vertebral body heights and alignment are maintained. There is mild multilevel degenerative disc disease mainly consisting of disc desiccation. Spinal cord: Visualized cord, conus medullaris and cauda equina are unremarkable without compression. L1-L2: There is a tiny left paracentral disc protrusion which causes minimal mass effect on the thecal sac. Otherwise there is no significant spinal canal or neural foraminal stenosis. L2-L3: There is minimal diffuse disc osteophyte ridging without significant spinal canal or neural foraminal stenosis. L3-L4: There is mild diffuse disc osteophyte ridging. There is mild spinal canal stenosis secondary to epidural fat and which also appears to be partially congenital in nature. The right neural foramen appears patent. There is mild left neural foraminal stenosis secondary to foraminal osteophyte ridging and facet hypertrophy. L4-L5: There is okfc-el-xibkuxdz spinal canal stenosis secondary to prominence of epidural fat and which also appears to be partially congenital in nature. There is mild diffuse disc osteophyte ridging. The neural foramina appear patent. L5-S1: There is epidural lipomatosis which effaces most of the thecal sac. There is a small left-sided disc protrusion which appears to cause mild mass effect on the central left S1 nerve roots. Please see image 9 of series 2 and image 25 of series 5. There is mild bilateral neural foraminal stenosis secondary to foraminal disc bulging and facet hypertrophy. Soft tissues: Unremarkable. IMPRESSION: Degenerative changes as described. Please see above for specific findings at each level.
[2024-06-13] MEDS: SODIUM CHLORIDE 0.9% 10ML SYR (RAD ONLY) 10 ML IV (14:31)
[2024-06-13] MEDS: GADOTERIDOL INJ 10ML SYRINGE 10 ML IV (14:31)
[2024-06-13] MEDS: GADOTERIDOL INJ 20ML SYRINGE 20 ML IV (14:31)
== END 2024-06-13 23:59 | disposition home or self-care (01) ==
PROVIDERS: PCP Family Medicine; Visit Provider Internal Medicine
DX: M79.605 Pain in left leg (principal); M79.604 Pain in right leg; R20.0 Anesthesia of skin; R42 Dizziness and giddiness
CPT/HCPCS: 72158; 93270; A9576

== ENCOUNTER 2024-08-02 08:10 | Day surgery (SDC) | payer OTHER, SELFPAY ==
--- NOTE | 2024-08-02 07:21 | IR_ITS ---
APPROVED REPORT Patient Location: Outpatient PROCEDURES Right heart catheterization INDICATION Pulmonary artery hypertension, Congestive heart failure Informed consent was obtained prior to the procedure. COMPLICATIONS none Estimated Blood Loss: less than 10ml TECHNIQUE One percent lidocaine was used to anesthetize the right anterior aspect of the neck. A bagger meat needle was used to identify the right internal jugular vein. Following this a larger cannulation needle was used to cannulate the right internal jugular vein and a wire was passed into the vein. Prior to the 7 Yi sheath being inserted the wire was confirmed under fluoroscopic guidance to be in the inferior vena cava. A 7 Yi sheath was introduced and a Altamont-Mateusz catheter was floated using hemodynamic waveforms in the pulmonary artery, right ventricle , and right atrium. Saturations were obtained in the pulmonary artery and the right atrium. At the end of the procedure the patient was transferred to the postop holding area in stable condition for sheath removal. ANGIOGRAPHIC RESULTS Right atrial pressure 20 mmHg Right ventricular pressure 40/20 mmHg Pulmonary artery pressure 40/28 mmHg Pulmonary occlusion pressure 25 mmHg Hemoglobin 13 Right atrial saturation 70% Pulmonary artery saturation 68% Aortic saturation 98% Cardiac output 6.5 L/min Cardiac index 2.4 IMPRESSION Moderate pulmonary hypertension Elevated left-sided filling pressures consistent with diastolic dysfunction PLAN 1. Increase spironolactone from 25 mg a day to 50 mg daily 2. Add Lasix 40 mg daily 3. Recommend sleep study 4. Weight loss exercise program Electronically signed by : Hadley Strong MD 08/02/2024 12:30:27
[2024-08-02 08:12] VITALS: BMI 58.8
[2024-08-02 08:50] VITALS: BP 132/75; PULSE 91; RESP 18; TEMP 36.9; O2SAT 94
[2024-08-02 08:56] LABS: Chloride 102 mmol/L (98-107); Potassium 4.4 mmoL/L (3.5-5.1); Sodium 137 mmol/L (136-145)
[2024-08-02 08:59] VITALS: PULSE 92
[2024-08-02 08:59] LABS: Anion Gap 10.4 mEq/L (5-15); Blood Urea Nitrogen 21 mg/dl (9-20); Calcium 9.5 mg/dl (8.4-10.2); Carbon Dioxide 29 mmol/L (22.0-30.0); Creatinine Clearance Estimated 90 mL/min (50-200); Estimated Glomerular Filt Rate 88 ml/min (>60); GFR (African American) 106 ML/MIN (>60); Glucose 132 mg/dl (74-100)
[2024-08-02 09:02] LABS: Basophils % 0.4 % (0.1-2.0); Eosinophils # 0.3 K/mm3 (0.0-0.4); Eosinophils % 2.7 % (0.1-12.0); Hematocrit 41.4 % (42.0-52.0); Hemoglobin 13.1 g/dL (14.1-18.0); Lymphocytes # 2.8 K/mm3 (0.7-4.5); Lymphocytes % 26.3 % (10-50); Mean Corpuscular HGB Conc 31.6 g/dL (31.8-35.4); Mean Corpuscular Hemoglobin 27.9 pg (27.0-31.2); Mean Corpuscular Volume 88.1 fl (80-94); Mean Platelet Volume 10.1 fl (7.4-10.4); Monocytes # 0.8 K/mm3 (0.1-1.0); Monocytes % 7.4 % (1.7-9.3); Neutrophils # 6.8 K/mm3 (1.8-7.8); Neutrophils % 62.7 % (37.0-80.0); Platelet Count 211 K/mm3 (142-424); Red Cell Distribution Width 14.8 % (11.5-17.5); White Blood Count 10.8 K/mm3 (4.8-10.8)
[2024-08-02] MEDS: 0.9 % SODIUM CHLORIDE 500 ML 25 ML IV (09:59)
[2024-08-02] MEDS: HEPARIN 1,000 UNITS/500ML NS (CATH LAB) 3000 UNIT IV (09:59)
[2024-08-02] MEDS: LIDOCAINE 1% 10ML MDV 20 ML IJ (09:59)
[2024-08-02] MEDS: diphenhydrAMINE 50MG/ML VIAL 50 MG IV (09:59)
[2024-08-02] MEDS: MIDAZOLAM HCL 1MG/ML 5ML VIAL 1 MG IV (10:25)
[2024-08-02] MEDS: FENTANYL 100MCG/2ML VIAL 50 MCG IV (10:25)
[2024-08-02 10:30] VITALS: BP 116/67; PULSE 84; RESP 20; O2SAT 97
[2024-08-02 10:31] VITALS: BP 116/67; PULSE 85; PULSE 86; RESP 20; O2SAT 95
[2024-08-02 10:45] VITALS: BP 127/65; PULSE 83; RESP 18; O2SAT 97
[2024-08-02 10:55] VITALS: BP 122/54; PULSE 83; RESP 20; O2SAT 97
[2024-08-02 14:23] LABS: CATHL Arterial O2 SAT 68.4 % (90-100); CATHL Venous O2 SAT 70.2 % (75-80)
== END 2024-08-02 11:03 | disposition home or self-care (01) ==
PROVIDERS: PCP Family Medicine; Visit Provider Internal Medicine
DX: I27.20 Pulmonary hypertension, unspecified (principal); I50.30 Unspecified diastolic (congestive) heart failure; I11.0 Hypertensive heart disease with heart failure; R53.83 Other fatigue; R42 Dizziness and giddiness; Z87.891 Personal history of nicotine dependence; Z88.0 Allergy status to penicillin; Z88.5 Allergy status to narcotic agent; Z88.8 Allergy status to other drugs, medicaments and biological substances; Z82.49 Family history of ischemic heart disease and other diseases of the circulatory system; Z68.43 Body mass index [BMI] 50.0-59.9, adult; E66.9 Obesity, unspecified
CPT/HCPCS: 80048; 82810; 85025; 93451; 99152; C1769; C1894; J1200; J1644; J3010

== ENCOUNTER 2024-08-08 12:08 | Outpatient (CLI) | payer OTHER, SELFPAY ==
[2024-08-08 12:28] LABS: Basophils % 0.4 % (0.1-2.0); Eosinophils # 0.3 K/mm3 (0.0-0.4); Eosinophils % 3.3 % (0.1-12.0); Hematocrit 42.3 % (42.0-52.0); Hemoglobin 13.4 g/dL (14.1-18.0); Lymphocytes # 2.2 K/mm3 (0.7-4.5); Mean Corpuscular HGB Conc 31.7 g/dL (31.8-35.4); Mean Corpuscular Hemoglobin 27.6 pg (27.0-31.2); Mean Corpuscular Volume 87.2 fl (80-94); Mean Platelet Volume 9.8 fl (7.4-10.4); Monocytes # 0.8 K/mm3 (0.1-1.0); Monocytes % 8.6 % (1.7-9.3); Neutrophils % 64.1 % (37.0-80.0); Nucleated Red Blood Cells # 0 10^3/uL; Nucleated Red Blood Cells % 0 %; Platelet Count 244 K/mm3 (142-424); Red Blood Count 4.85 M/mm3 (4.60-6.20); Red Cell Distribution Width-SD 47.8 fL; White Blood Count 9.4 K/mm3 (4.8-10.8)
[2024-08-08 12:56] LABS: Chloride 102 mmol/L (98-107); Potassium 4.9 mmoL/L (3.5-5.1); Sodium 140 mmol/L (136-145)
[2024-08-08 12:59] LABS: Anion Gap 10.9 mEq/L (5-15); Blood Urea Nitrogen 17 mg/dl (9-20); Calcium 9.5 mg/dl (8.4-10.2); Carbon Dioxide 32 mmol/L (22.0-30.0); Estimated Glomerular Filt Rate 100 ml/min (>60); GFR (African American) 121 ML/MIN (>60); Glucose 101 mg/dl (74-100)
[2024-08-08 13:08] LABS: NT Pro Brain Natriuretic Pep. < 20.0 pg/mL (0-125)
--- OUTSIDE RECORDS SUMMARY | 2024-08-08 23:20 | XMS_ITS | Clinical Summary ---
Author Organization [facility] Address [address] [place] [phone] Phone Care Team Providers Care Petroleum Supply Specialist Name Role Phone Heidi GARCIA, Max Unavailable [phone] Starr Garcia, Tosha Unavailable [phone] Reason for Visit and Chief Complaint [facility] Problems Includes: Problems addressed during this encounter and other active Problems All Visits Onset Date Resolved Date Provider Condition S tatus Joint Pain in Both Knees 11/16/2023 Max cannon MD Active Last Documented On 4 10:48AM ; [facility] Joint Pain in the Left Knee 02/13/2023 Vinny Grewal PA-C Active Last Documented On 3 10:15AM ; [facility] Plan of Treatment No Plan of Treatment Recorded Assessments Includes: Assessments from this encounter No Assessments Recorded Medical Equipment - Implanted Devices Includes: Current Devices No Medical Equipment Recorded Medications Includes: Medications discussed during this encounter and other current Medications Current Medications (continue as prescribed) Esomeprazole Magnesium 40 MG Oral Capsule, delayed-release 10/04/2023 Provider: Tosha Clements Md Diagnosis: Last Documented On 4 10:48AM By Lissa [facility] rOPINIRole HCl 2 MG Oral Tablet 10/04/2023 Provider: Felicitas Saini NP Diagnosis: Last Documented On 4 10:48AM By Lissa Hernandez ; [facility] Vitamin D (Ergocalciferol) 1 .25 MG (54277 UT) Oral Capsule, conventional 09/27/2023 Provider: ARLENE ELIAS Diagnosis: Last Documented On 4 10:48AM By Lissa Hernandez ; [facility] Topiramate 25 MG Oral Tablet 08/10/2023 Provider: Tosha Clements Md Diagnosis: Last Documented On 4 10:48AM By Lissa Hernandez ; [facility] buPROPion HCl ER (XL) 150 MG Oral Tablet, extended-release 24 hour 08/10/2023 Provider: Tosha zepeda Md Diagnosis: Last Documented On 4 10:48AM By Lissa Hernandez ; [facility] Esomeprazole Magnesium 40 MG Oral Capsule, delayed-release 07/29/2023 Provider: Tosha Clements Md Diagnosis: Last Documented On 4 10:48AM By Lissa Hernandez ; [facility] Lisinopril-hydroCHLOROthiazi de 10-12.5 MG Oral Tablet 07/05/2023 Provider: Tosha Clements Md Diagnosis: Last Documented On 4 10:48AM By Lissa Hernandez ; [facility] Cyclobenzaprine HCl 10 MG Oral Tablet 07/04/2023 Pro vider: Diagnosis: Last Documented On 4 10:48AM By Lissa Hernandez ; [facility] Medications Administered Includes: Administered Medications from this encounter No Administered Medications Recorded Results Includes: Results discussed during this encounter No Results Recorded For Specified Dates History of Present Illness Includes: History of Present Illness from this encounter No History of Present Illness Recorded Social History No Social History Recorded - Smoking Status Unknown Medical History Includes: Medical History addressed during this encounter No Medical History Recorded Family History Includes: Family History addressed during this encounter No Family History Recorded Review of Systems Includes: Review of Systems from this encounter No Review of Systems Recorded Mental Status Includes: Mental Status from this encounter No Mental Status Recorded Functional Status Includes: Functional Status from this encounter No Functional Status Recorded Physical Exam Includes: Physical Exam from this encounter No Physical Exam Recorded Allergies Includes: Active Allergies Substance Type Reaction Onset Date Resolved Date Statu s Percocet Allergy 02/13/2023 Active Last Documented On 4 10:48AM ; [facility] penicillAMINE Allergy 02/13/2023 Activ e Last Documented On 4 10:48AM ; [facility] Encounters Encounter Provider Location Date Check-In Time Check-Out Time Diagnosis [facility] Max Gordon MD Surgery 3 04/10/2023 8:44AM 11:59PM Insurance Includes: Active Insurance Policies Plan Name Member ID Group # Subscriber Relationship Effect reji Dates - [id number] Conrado Chambers Clinical Notes Includes: Clinical Notes from this encounter No Clinical Notes Recorded
--- OUTSIDE RECORDS SUMMARY | 2024-08-08 23:20 | XMS_ITS ---
Care Plan - [facility] Created on: August 08, 2024 Conrado Wilks : 1970 Sex: Male Author Organization [facility] Address [address] [place] [phone] Phone Care Team Providers Care Platform Supervisor Name Role Phone Heidi GARCIA, Max Unavailable [phone] Starr Garcia, Tosha Unavailable [phone]
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
--- OUTSIDE RECORDS SUMMARY | 2024-08-08 23:20 | XMS_ITS ---
Author Organization [facility] Address [address] [place] [address] Phone Care Team Providers Care Car Hop Name Role Phone Heidi GARCIA, Max Unavailable [phone] Starr Garcia, Tosha Unavailable [phone] Problems Includes: Active, inactive, and resolved Problems All Visits Onset Date Resolved Date Provider Condition S tatus Joint Pain in Both Knees 11/16/2023 Max cannon MD Active Last Documented On 4 10:48AM ; [facility] Joint Pain in the Left Knee 02/13/2023 Vinny Grewal PA-C Active Last Documented On 3 10:15AM ; [facility] Plan of Treatment Pending Tests Order Diagnosis Results Due Ordering P rovider Radiology - MRI MRI Knee Pain in left knee 02/27/23 Roxie Grewal PA-C Last Documented On 3 12:07PM ; [facility] Instructions to patient Lose weight Last Documented On 4 11:02AM ; [facility] Lose weight Last Documented On 3 10:11AM ; [facility] Lose weight Last Documented On 3 8:53AM ; [facility] Lose weight Last Documented On 3 10:16AM ; [facility] Assessments Includes: Assessments for all patient encounters Findings Encounter Date Overweight NEW PROBLEM/EST PT with Max Gordon MD 11/16/2023 Last Documented On 4 4:18PM ; [facility] Overweight Post Op with Vinny Grewal PA-C 04/21/2023 Last Documented On 3 11:45AM ; [facility] Overweight Follow Up with Max Gordon MD 1 Last Documented On 3 9:08AM ; [facility] Overweight Non Physician Specified with Aj Grewal PA-C 02/13/2023 Last Documented On 3 12:07PM ; [facility] Instructions Includes: Instructions for all patient encounters Instructions to patient Lose weight Last Documented On 4 11:02AM ; [facility] Lose weight Last Documented On 3 10:11AM ; [facility] Lose weight Last Documented On 3 8:53AM ; [facility] Lose weight Last Documented On 3 10:16AM ; [facility] Medical Equipment - Implanted Devices Includes: Current and historical Devices No Medical Equipment Recorded Medications Includes: Current and historical Medications Current Medications (continue as prescribed) Esomeprazole Magnesium 40 MG Oral Capsule, delayed-release 10/04/2023 Provider: Tosha Clements Md Diagnosis: Last Documented On 4 10:48AM By Lissa Hernandez ; [facility], [facility] rOPINIRole HCl 2 MG Oral Tablet 10/04/2023 Provider: Felicitas Saini NP Diagnosis: Last Documented On 4 10:48AM By Lissa Hernandez ; [facility], [facility] Vitamin D (Ergocalciferol) 1 .25 MG (54055 UT) Oral Capsule, conventional 09/27/2023 Provider: ARLENE ELIAS Diagnosis: Last Documented On 4 10:48AM By Lissa Hernandez ; [facility], [facility] Topiramate 25 MG Oral Tablet 08/10/2023 Provider: Tosha Clements Md Diagnosis: Last Documented On 4 10:48AM By Lissa Hernandez ; [facility], [facility] buPROPion HCl ER (XL) 150 MG Oral Tablet, extended-release 24 hour 08/10/2023 Provider: Tosha zepeda Md Diagnosis: Last Documented On 4 10:48AM By Lissa Hernandez ; [facility], [facility] Esomeprazole Magnesium 40 MG Oral Capsule, delayed-release 07/29/2023 Provider: Tosha Clements Md Diagnosis: Last Documented On 4 10:48AM By Lissa Hernandez ; [facility] Lisinopril-hydroCHLOROthiazi de 10-12.5 MG Oral Tablet 07/05/2023 Provider: Tosha Clements Md Diagnosis: Last Documented On 4 10:48AM By Lissa Hernandez ; [facility] Cyclobenzaprine HCl 10 MG Oral Tablet 07/04/2023 Pro vider: Diagnosis: Last Documented On 4 10:48AM By Lissa Hernandez ; [facility] Past Medications on file traMADol HCl 50 MG Oral Tablet 11/16/2023 - 01/15/2024 Provider: Max Gordon MD Diagnosis: 1 - 2 Q HS PRN Last Documented On 4 11:21AM By Max Gordon ; [facility] traMADol HCl 50 MG Oral Tablet 04/10/2023 - 04/20/2023 Provider: Max Gordon MD Diagnosis: 1-2 po q 4-6h PRN for breakthrough post op pain Last Documented On 3 8:35AM By Max Gordon ; [facility] Ondansetron HCl 4 MG Oral Tablet 04/10/2023 - 04/24/20 Provider: Max Gordon MD Diagnosis: 1-2 p o q 6-8h as needed for nausea Last Documented On 3 8:35AM By Max Gordon ; [facility] Aspirin Adult Low Strength 8 1 MG Oral Tablet Delayed Release 04/10/2023 - 05/25/2023 Provider: Max Gordon MD Diagnosis: twice a day Last Documented On 3 8:35AM By Max Gordon ; [facility] HYDROcodone-Acetaminophen 5- 325 MG Oral Tablet 04/10/2023 - 05/10/2023 Provider: Max Gordon MD Diagnosis: [id number] for post op pain Last Documented On 3 8:50AM By Max Gordon ; [facility] Cyclobenzaprine HCl 10 MG Oral Tablet 02/07/2023 - Provider: Diagnosis: Last Documented On 4 10:48AM By Lissa Hernandez ; [facility] rOPINIRole HCl 2 MG Oral Tablet 12/01/2022 - Provider: Diagnosis: Last Documented On 4 10:48AM By Lissa Hernandez ; [facility] Esomeprazole Magnesium 40 MG Oral Capsule Delayed Release 11/25/2022 - 11/16/2023 Provider: Tosha Clements Md Diagnosis: Last Documented On 4 10:48AM By Lissa Hernandez ; [facility] Venlafaxine HCl ER 75 MG Ora l Capsule Extended Release 24 Hour 11/25/2022 - 11/16/2023 Provider: Tosha Clements Md Diagnosis: Last Documented On 4 10:48AM By Lissa Hernandez ; [facility] [place] Lisinopril-hydroCHLOROthiazi de 10-12.5 MG Oral Tablet 07/14/2022 - 11/16/2023 Provider: Tosha Clements Md Diagnosis: Last Documented On 4 10:48AM By Lissa Hernandez ; [facility] [place] Medications Administered Includes: Administered Medications in patient's chart No Administered Medications Recorded Vital Signs Includes: Vital Signs from 08/09/2023 through 08/08/2024 Vital Name 11/16/2023 11:01A Height (in) 68 Weight (lb) 350 Body Mass Index 53.2 Body Surface Area 2.6 Note: BNA Last Documented: On 11/16/2023 11:01A M ; [facility] Results Includes: Results from 08/09/2023 through 08/08/2024 No Results Recorded For Specified Dates History of Present Illness History of Present Illness not supported for this document type No History of Present Illness Recorded Social History Description Last Updated Alcohol use: 2 drinks or less per day Last Documented On 4 4:18PM ; [facility] Former smoker 11/16/2023 Last Documented On 4 4:18PM ; [facility] Never used drugs 11/16/2023 Last Documented On 4 4:18PM ; [facility] Alcohol use 02/13/2023 Last Documented On 3 12:07PM ; [facility], [facility] Tobacco non-user 02/13/2023 Last Documented On 3 12:07PM ; [facility] No caffeine use 02/13/2023 Last Documented On 3 12:07PM ; [facility], [facility] No recent change in diet 02/13/2023 Last Documented On 3 12:07PM ; [facility] Not a current smoker. 02/13/2023 Last Documented On 3 12:07PM ; [facility], [facility] Not exercising regularly 02/13/2023 Last Documented On 3 12:07PM ; [facility] Not using drugs 02/13/2023 Last Documented On 3 12:07PM ; [facility], [facility] Smoking Status Unknown Procedures and Surgical History Includes: Procedures from 08/09/2023 through 08/08/2024 Procedures Code Diagnosis Performing Provider Service Location Service Date DRAIN/INJECT, JOINT/BURSA (RIGHT) Unilateral primary osteoarthritis, right knee Max Gordon MD [facility] 11/16/2023 Last Documented On 4 2:47PM ; [facility], [facility] Injection, betamethasone acetate 6mg per cc and betamethason [id number] Unilateral primary osteoarthritis, right knee Max Gordno MD [facility] 11/16/2023 Last Documented On 4 2:47PM ; [facility], [facility] X-RAY EXAM OF KNEE 1 OR 2 VIEWS (RIGHT) [id number] Unilateral primary osteoarthritis, right knee Max Gordon MD [facility] 11/16/2023 Last Documented On 4 2:47PM ; [facility], [facility] X-RAY EXAM OF KNEE 1 OR 2 VIEWS (LEFT) [id number] Unilateral primary osteoarthritis, left knee Max Gordon MD [facility] 11/16/2023 Last Documented On 4 2:47PM ; [facility] Surgical History Last Updated History of back surgery 02/13/2023 Last Documented On 3 12:07PM ; [facility] Past Surgical History: Right Leg-Blood C lot ~right hand ~wisdom teeth 02/13/2023 Last Documented On 3 12:07PM ; [facility] Medical History Includes: Medical History in patient's chart Description Last Updated History of arthritis 02/13/2023 Last Documented On 3 12:07PM ; [facility] History of depression 02/13/2023 Last Documented On 3 12:07PM ; [facility] History of Heartburn / Acid Reflux 02/13 Last Documented On 3 12:07PM ; [facility] History of History of Blood Clots 2022 Last Documented On 3 12:07PM ; [facility] History of Hypertension 02/13/2023 Last Documented On 3 12:07PM ; [facility] History of Sleep Apnea 02/13/2023 Last Documented On 3 12:07PM ; [facility] History of Thyroid Disease 02/13/2023 Last Documented On 3 12:07PM ; [facility], [facility] Family History Includes: Family History in patient's chart Description Last Updated Maternal grandmother's history of diabet es mellitus 11/16/2023 Last Documented On 4 4:18PM ; [facility] Maternal history of diabetes mellitus Last Documented On 4 4:18PM ; [facility] Maternal history of systemic hypertensio n 11/16/2023 Last Documented On 4 4:18PM ; [facility] Paternal history of family history of ca ncer 11/16/2023 Last Documented On 4 4:18PM ; [facility] Family history of cancer father ~mother 02/13/2023 Last Documented On 3 12:07PM ; [facility] Family history of heart disease both gra ndparents 02/13/2023 Last Documented On 3 12:07PM ; [facility] Review of Systems Review of Systems not supported for this document type No Review of Systems Recorded Mental Status Description Anxiety Functional Status No Functional Status Recorded Physical Exam Physical Exam not supported for this document type No Physical Exam Recorded Allergies Includes: Active, inactive, and resolved Allergies Substance Type Reaction Onset Date Resolved Date Statu s Percocet Allergy 02/13/2023 Active Last Documented On 4 10:48AM ; [facility] penicillAMINE Allergy 02/13/2023 Activ e Last Documented On 4 10:48AM ; [facility] Encounters Includes: Encounters from 08/09/2023 through 08/08/2024 Encounter Provider Location Date Check-In Time Check-Out Time Diagnosis NEW PROBLEM/EST PT Max Gordon MD [facility] 11/16/19 24 10:47AM 11:15AM Overweight Insurance Includes: Active Insurance Policies Plan Name Member ID Group # Subscriber Relationship Effect reji Dates 1 - PRIME [id number] Conrado Wilks Self Clinical Notes Includes: Signed Clinical Notes starting from 04/14/2022 * Progress note Date Encounter Last Documented by 11/16/2023 NEW PROBLEM/EST PT Last document ed on 12/15/2023; 4:18 PM, Max Gordon MD; [facility] Active Problems & Conditions - Joint Pain in Both Knees - Joint Pain in the Left Knee Subjective Have you ever tried physical therapy for this and how long and where? NO What injections have you tried for this pain? NONE Last injection date? Have you had prior surgery on this area? MENISCUS REPAIR BY IN MARCH 2023 What medications have you tried for this pain? MOTRIN, HYDROCODONE Have you tried to lose weight? NO Chief Complaint The Chief Complaint is: BILATERAL KNEE PAIN. Referred Here Referred by SELF. History of Present Illness Conrado Wilks is a 53 year old male. - Symptoms LOCKING, CATCHING, GIVING AWAY, POPPING. - Allergy list reviewed - Problem list reviewed - Medication list reviewed - Previous history of new onset pain Injury is not work related or an automotive accident. SEVERAL MONTHS; - Stabbing pain - Pain is constant (100% of the time) - Pain is dull, aching - Patient pain level from 1-10: 10 BETTER: NOT WALKING WORSE: STANDING AFTER SITTING BEFORE BED - No previous treatment. - - Review of medications documented Patient presents with recurrent right and left knee pain the right is now worse in the left he had a previous arthroscopy in the left knee about a year ago but still has arthritic pain in that knee at the time of surgery was noted to have fairly significant medial and patellofemoral compartment changes we will likely knee total knee replacement on the left of the right knee has been getting worse increased swelling stiffness pain along the anteromedial joint line is the worst difficulty getting up and down from seated position Current Medication - buPROPion HCl ER (XL) 150 MG Oral Tablet, extended-release 24 hour Tablet Extended Release 24 Hour 90 days, 0 refills - Cyclobenzaprine HCl 10 MG Oral Tablet 90 days, 0 refills - Esomeprazole Magnesium 40 MG Oral Capsule, delayed-release Capsule Delayed Release 90 days, 0 refills - Esomeprazole Magnesium 40 MG Oral Capsule, delayed-release Capsule Delayed Release 90 days, 0 refills - Lisinopril-hydroCHLOROthiazide 10-12.5 MG Oral Tablet 90 days, 0 refills - rOPINIRole HCl 2 MG Oral Tablet 90 days, 0 refills - Topiramate 25 MG Oral Tablet 90 days, 0 refills - Vitamin D (Ergocalciferol) 1.25 MG (11810 UT) Oral Capsule, conventional 90 days, 0 refills Past Medical/Surgical History Diagnoses: History of Blood Clots Sleep Apnea Heartburn / Acid Reflux Thyroid Disease Hypertension. Arthritis. Depression Surgical: - Past Surgical History: Right Leg-Blood Clot right hand wisdom teeth - Back surgery Social History Not a current smoker. Current diet: No recent change in diet. Caffeine use: No caffeine use. Tobacco use: Former smoker. Alcohol: Alcohol use alcohol use: 2 drinks or less per day. Drug Use: Not using drugs. Never used drugs. Habits: Not exercising regularly. Allergies - penicillAMINE - Percocet Family History Cancer father mother Heart disease both grandparents Paternal: Cancer Maternal: Systemic hypertension Diabetes mellitus Maternal grandmother's: Diabetes mellitus Review Of Systems Systemic: No symptoms. Head: Headache. Otolaryngeal: Tinnitus. Neurological: Dizziness and numbness. Psychological: Anxiety and depression. Physical Findings - Vitals taken 11/16/2023 11:01 am BNA Height 68 in 60 - 80 Weight 350 lbs 125 - 225 Body Mass Index 53.2 kg/m2 Body Surface Area 2.6 m2 Left knee varus deformity 10 degree flexion contracture 120 flexion right knee 5 degree flexion contracture flexion 125 with good stability Milind's sign positive in tenderness over the medial joint line Assessment - Overweight Counseling/Education - Tobacco non-user - Use of tobacco assessment performed - Lose weight Plan StartCited - Other traMADol HCl 50 MG tablet 1 - 2 Q HS PRN, 60 days, 0 refills EndCited Risks and benefits of the injection were outlined to the patient. They wish to proceed. The right knee was prepped with alcohol. I injected 1 cc of Celestone and 4 cc of 1% lidocaine into the joint. He tolerated this well. The needle was withdrawn and a Band-Aid was placed inside of the injection. Patient will continue work on weight loss we will see him in 3 months we need to discuss left knee replacement some point in the future after he loses some weight to improve his perioperative risk and then we will we will see what that time for re-evaluation Notes This dictation was done with voice recognition software and may contain errors and omissions. Care Team - Tosha Clements Md - [employer]
--- OUTSIDE RECORDS SUMMARY | 2024-08-08 23:20 | XMS_ITS | Clinical Summary ---
Author Organization [facility] Address [address] [place] [address] Phone Care Team Providers Care Patient Companion Name Role Phone Heidi GARCIA, Max Unavailable [phone] Starr Garcia, Tohsa Unavailable [phone] Reason for Visit and Chief Complaint The Chief Complaint is: BILATERAL KNEE PAIN Problems Includes: Problems addressed during this encounter and other active Problems Current Visit Onset Date Resolved Date Provider Conditio n Status Joint Pain in Both Knees 11/16/2023 Max cannon MD Active Last Documented On 4 10:48AM ; [facility] Past Visits Onset Date Resolved Date Provider Condition Status Joint Pain in the Left Knee 02/13/2023 Vinny Uri MARTI Active Last Documented On 3 10:15AM ; [facility] Plan of Treatment Risks and benefits of the injection were [...] will see what that time for re-evaluation - Last Documented On 12/15/2023 4:18PM ; [facility] Instructions to patient Lose weight Last Documented On 4 11:02AM ; [facility] Assessments Includes: Assessments from this encounter Findings - Overweight - Last Documented On 12/15/2023 4:18PM ; [facility] Instructions Includes: Instructions from this encounter Instructions to patient Lose weight Last Documented On 4 11:02AM ; [facility] Medical Equipment - Implanted Devices Includes: Current Devices No Medical Equipment Recorded Medications Includes: Medications discussed during this encounter and other current Medications Discontinued / Stopped on this date on 02/07/2023 Cyclobenzaprine HCl 10 MG Oral Tablet Pro vider: Diagnosis: Last Documented On 4 10:48AM By Lissa Hernandez ; [facility] rOPINIRole HCl 2 MG Oral Tablet Provider: Diagnosis: Last Documented On 4 10:48AM By Lissa Hernandez ; [facility] Esomeprazole Magnesium 40 MG Oral Capsule Delayed Release Provider: Tosha Clements Md Diagnosis: Last Documented On 4 10:48AM By Lissa Hernandez ; [facility] Venlafaxine HCl ER 75 MG Ora l Capsule Extended Release 24 Hour Provider: Tosha zepeda Md Diagnosis: Last Documented On 4 10:48AM By Lissa Hernandez ; [facility] Lisinopril-hydroCHLOROthiazi de 10-12.5 MG Oral Tablet Provider: Tosha Clements Md Diagnosis: Last Documented On 4 10:48AM By Lissa Hernandez ; [facility] New / Renewed during this visit Max Gordon MD on 11/16/2023 traMADol HCl 50 MG Oral Tablet Provider: Max Gordon MD 60 day supply: 60 tablet, 0 refills Diagnosis: 1 - 2 Q HS PRN Pharmacy: [facility]/pharmacy #[id number] - [address] [facility] [place], [address] - Last Documented On 4 11:21AM By Max Gordon ; [facility] Current Medications (continue as prescribed) Esomeprazole Magnesium 40 MG Oral Capsule, delayed-release 10/04/2023 Provider: Tosha Clements Md Diagnosis: Last Documented On 4 10:48AM By Lissa Hernandez ; [facility] rOPINIRole HCl 2 MG Oral Tablet 10/04/2023 Provider: Felicitas Saini NP Diagnosis: Last Documented On 4 10:48AM By Lissa Hernandez ; [facility] Vitamin D (Ergocalciferol) 1 .25 MG (02073 UT) Oral Capsule, conventional 09/27/2023 Provider: ARLENE ELIAS Diagnosis: Last Documented On 4 10:48AM By Lissa Hernandez ; [facility] Topiramate 25 MG Oral Tablet 08/10/2023 Provider: Tosha Clements Md Diagnosis: Last Documented On 4 10:48AM By Lissa Hernandez ; [facility] buPROPion HCl ER (XL) 150 MG Oral Tablet, extended-release 24 hour 08/10/2023 Provider: Tosha zepeda Md Diagnosis: Last Documented On 4 10:48AM By Lissa Hernandez ; [facility] Esomeprazole Magnesium 40 MG Oral Capsule, delayed-release 07/29/2023 Provider: Tosha Clements Md Diagnosis: Last Documented On 4 10:48AM By Lissa Hernandez ; [facility] Lisinopril-hydroCHLOROthiazi de 10-12.5 MG Oral Tablet 07/05/2023 Provider: Tosha Clements Md Diagnosis: Last Documented On 4 10:48AM By Lissa Hernandez ; [facility] Cyclobenzaprine HCl 10 MG Oral Tablet 07/04/2023 Pro vider: Diagnosis: Last Documented On 4 10:48AM By Lissa Hernandez ; [facility] Past Medications on file traMADol HCl 50 MG Oral Tablet 04/10/2023 - 04/20/2023 Provider: Max Gordon MD Diagnosis: 1-2 po q 4-6h PRN for breakthrough post op pain Last Documented On 3 8:35AM By Max Gordon ; [facility] Ondansetron HCl 4 MG Oral Tablet 04/10/2023 - 04/24/20 Provider: Max Gordon MD Diagnosis: 1-2 p o q 6-8h as needed for nausea Last Documented On 3 8:35AM By Max Gordon ; [facility] Aspirin Adult Low Strength 8 1 MG Oral Tablet Delayed Release 04/10/2023 - 05/25/2023 Provider: Max Gordon MD Diagnosis: twice a day Last Documented On 3 8:35AM By Max Gordon ; [facility] HYDROcodone-Acetaminophen 5- 325 MG Oral Tablet 04/10/2023 - 05/10/2023 Provider: Max Gordon MD Diagnosis: [id number] for post op pain Last Documented On 3 8:50AM By Max Gordon ; [facility] Medications Administered Includes: Administered Medications from this encounter No Administered Medications Recorded Vital Signs Includes: Vital Signs from this encounter Vital Name 11/16/2023 11:01A Height (in) 68 Weight (lb) 350 Body Mass Index 53.2 Body Surface Area 2.6 Note: BNA Last Documented: On 11/16/2023 11:01A M ; [facility] Results Includes: Results discussed during this encounter No Results Recorded For Specified Dates History of Present Illness Includes: History of Present Illness from this encounter DWIGHT Wilks is a 53 year old male. [...] WALKING WORSE: STANDING AFTER SITTING BEFORE BED ? No previous treatment. - - Review of [...] getting up and down from seated position Social History Description Last Updated Alcohol use: 2 drinks or less per day Last Documented On 4 4:18PM ; [facility] Former smoker 11/16/2023 Last Documented On 4 4:18PM ; [facility] Never used drugs 11/16/2023 Last Documented On 4 4:18PM ; [facility] Alcohol use 02/13/2023 Last Documented On 4 10:48AM ; [facility] Tobacco non-user 02/13/2023 Last Documented On 4 10:48AM ; [facility] No caffeine use 02/13/2023 Last Documented On 4 10:48AM ; [facility] No recent change in diet 02/13/2023 Last Documented On 4 10:48AM ; [facility] Not a current smoker. 02/13/2023 Last Documented On 4 10:48AM ; [facility] Not exercising regularly 02/13/2023 Last Documented On 4 10:48AM ; [facility] Not using drugs 02/13/2023 Last Documented On 4 10:48AM ; [facility] Smoking Status Unknown Procedures and Surgical History Includes: Procedures from this encounter Procedures Code Diagnosis Performing Provider Service Location Service Date DRAIN/INJECT, JOINT/BURSA (RIGHT) Unilateral primary osteoarthritis, right knee Max Gordon MD [facility] 11/16/2023 Last Documented On 4 2:47PM ; [facility] Injection, betamethasone acetate 6mg per cc and betamethason [id number] Unilateral primary osteoarthritis, right knee Max Gordon MD [facility] 11/16/2023 Last Documented On 4 2:47PM ; [facility] X-RAY EXAM OF KNEE 1 OR 2 VIEWS (RIGHT) 82257 Unilateral primary osteoarthritis, right knee Max Gordon MD [facility] 11/16/2023 Last Documented On 4 2:47PM ; [facility] X-RAY EXAM OF KNEE 1 OR 2 VIEWS (LEFT) [id number] Unilateral primary osteoarthritis, left knee Max Gordon MD [facility] 11/16/2023 Last Documented On 4 2:47PM ; [facility] Surgical History Last Updated History of back surgery 02/13/2023 Last Documented On 4 10:48AM ; [facility] Past Surgical History: Right Leg-Blood C lot ~right hand ~wisdom teeth 02/13/2023 Last Documented On 4 10:48AM ; [facility] Medical History Includes: Medical History addressed during this encounter Description Last Updated History of arthritis 02/13/2023 Last Documented On 4 10:48AM ; [facility] History of depression 02/13/2023 Last Documented On 4 10:48AM ; [facility] History of Heartburn / Acid Reflux 02/13 Last Documented On 4 10:48AM ; [facility] History of History of Blood Clots 2022 Last Documented On 4 10:48AM ; [facility] History of Hypertension 02/13/2023 Last Documented On 4 10:48AM ; [facility] History of Sleep Apnea 02/13/2023 Last Documented On 4 10:48AM ; [facility] History of Thyroid Disease 02/13/2023 Last Documented On 4 10:48AM ; [facility] Family History Includes: Family History addressed during this encounter Description Last Updated Maternal grandmother's history of diabet es mellitus 11/16/2023 Last Documented On 4 4:18PM ; [facility] Maternal history of diabetes mellitus Last Documented On 4 4:18PM ; [facility] Maternal history of systemic hypertensio n 11/16/2023 Last Documented On 4 4:18PM ; [facility] Paternal history of family history of ca ncer 11/16/2023 Last Documented On 4 4:18PM ; [facility] Family history of cancer father ~mother 02/13/2023 Last Documented On 4 10:48AM ; [facility] Family history of heart disease both gra ndparents 02/13/2023 Last Documented On 4 10:48AM ; [facility] Review of Systems Includes: Review of Systems from this encounter Systemic: No symptoms. Head: Headache. Otolaryngeal: Tinnitus. Neurological: Dizziness and numbness. Psychological: Anxiety and depression. Mental Status Includes: Mental Status from this encounter Description Anxiety Functional Status Includes: Functional Status from this encounter No Functional Status Recorded Physical Exam Includes: Physical Exam from this encounter Allergies Includes: Active Allergies Substance Type Reaction Onset Date Resolved Date Statu s Percocet Allergy 02/13/2023 Active Last Documented On 4 10:48AM ; [facility] penicillAMINE Allergy 02/13/2023 Activ e Last Documented On 4 10:48AM ; [facility] Encounters Encounter Provider Location Date Check-In Time Check-Out Time Diagnosis NEW PROBLEM/EST PT Max Gordon MD [facility] 11/16/19 24 10:47AM 11:15AM Overweight Insurance Includes: Active Insurance Policies Plan Name Member ID Group # Subscriber Relationship Effect reji Dates 1 - PRIME [id number] Conrado Wilks Self Clinical Notes Includes: Clinical Notes from this encounter * Progress note Date Encounter Last Documented by 11/16/2023 NEW PROBLEM/EST PT Last document ed on 12/15/2023; 4:18 PM, Max Gordon MD; [facility] Active Problems & Conditions - Joint [...] refills - Vitamin D (Ergocalciferol) 1.25 MG (71179 UT) Oral Capsule, conventional 90 days, 0 [...] Care Team - Tosha Clements Md - [employer]
--- OUTSIDE RECORDS SUMMARY | 2024-08-08 23:20 | XMS_ITS | Clinical Summary ---
Author Organization [facility] , [facility] Address [address] [place] [address] Phone Care Team Providers Care Pv Design And Installation Technician Name Role Phone Heidi GARCIA, Max Unavailable [phone] Starr Garcia, Tosha Unavailable [phone] Reason for Visit and Chief Complaint The Chief Complaint is: Left knee pain Problems Includes: Problems addressed during this encounter and other active Problems All Visits Onset Date Resolved Date Provider Condition S tatus Joint Pain in Both Knees 11/16/2023 Max cannon MD Active Last Documented On 4 10:48AM ; [facility] Joint Pain in the Left Knee 02/13/2023 Vinny Grewal PA-C Active Last Documented On 3 10:15AM ; [facility] Plan of Treatment Patient was seen by myself Vinny Grewal PA-C. Patient will follow up with Dr. Gordon in a month I explained to him in detail that this would be the least invasive procedure for him and at some point in the future he may require a knee replacement but we try to do the least invasive things to start with. We went over the need for some physical therapy after this he says due to the cost of his co-pay he does not want to go to physical therapy more than least 1 visit I think it is okay for him to do to be taught a home program. With the swelling today that he has we will get a Doppler ultrasound to rule out DVT as he has had a history of 1 of those in the past and he is overweight. Sutures taken out today. - Last Documented On 04/21/2023 11:45AM ; [facility] Pending Tests Order Diagnosis Results Due Ordering P rovider Radiology - MRI MRI Knee Pain in left knee 02/27/23 Roxie Grewal PA-C Last Documented On 3 12:07PM ; [facility] Therapy - Physical Therapy Knee Pain in left knee Vinny Grewal PA-C Last Documented On 3 11:45AM ; [facility] Instructions to patient Lose weight Last Documented On 3 10:11AM ; [facility], [facility] Assessments Includes: Assessments from this encounter Findings - Overweight - Last Documented On 04/21/2023 11:45AM ; [facility], [facility] Left knee scope with partial medial lateral meniscectomies chondroplasty patellofemoral medial compartments. Surgery date was 04/11/2023 - Last Documented On 04/21/2023 11:45AM ; [facility] Instructions Includes: Instructions from this encounter Instructions to patient Lose weight Last Documented On 3 10:11AM ; [facility] Medical Equipment - Implanted Devices Includes: Current Devices No Medical Equipment Recorded Medications Includes: Medications discussed during this encounter and other current Medications Current Medications (continue as prescribed) Esomeprazole Magnesium 40 MG Oral Capsule, delayed-release 10/04/2023 Provider: Tosha Clements Md Diagnosis: Last Documented On 4 10:48AM By Lissa Hernandez ; [facility] rOPINIRole HCl 2 MG Oral Tablet 10/04/2023 Provider: Felicitas Saini NP Diagnosis: Last Documented On 4 10:48AM By Lissa Hernandez ; [facility] Vitamin D (Ergocalciferol) 1 .25 MG (87065 UT) Oral Capsule, conventional 09/27/2023 Provider: ARLENE ELIAS Diagnosis: Last Documented On 4 10:48AM By Lissa Hernandez ; [facility], [facility] Topiramate 25 MG Oral Tablet 08/10/2023 Provider: Tosha Clements Md Diagnosis: Last Documented On 4 10:48AM By Lissa Hernandez ; [facility] buPROPion HCl ER (XL) 150 MG Oral Tablet, extended-release 24 hour 08/10/2023 Provider: Tosha zepeda Md Diagnosis: Last Documented On 4 10:48AM By Lissa Hernandez ; [facility], [facility] Esomeprazole Magnesium 40 MG Oral Capsule, delayed-release 07/29/2023 Provider: Tosha Clements Md Diagnosis: Last Documented On 4 10:48AM By Lissa Hernandez ; [facility], [facility] Lisinopril-hydroCHLOROthiazi de 10-12.5 MG Oral Tablet 07/05/2023 Provider: Tosha Clements Md Diagnosis: Last Documented On 4 10:48AM By Lissa Hernandez ; [facility] Cyclobenzaprine HCl 10 MG Oral Tablet 07/04/2023 Pro vider: Diagnosis: Last Documented On 4 10:48AM By Lissa Hernandez ; [facility] Past Medications on file traMADol HCl 50 MG Oral Tablet 11/16/2023 - 01/15/2024 Provider: Max Gordon MD Diagnosis: 1 - 2 Q HS PRN Last Documented On 4 11:21AM By Max Gordon ; [facility] traMADol HCl 50 MG Oral Tablet 04/10/2023 - 04/20/2023 Provider: Max Gordon MD Diagnosis: 1-2 po q 4-6h PRN for breakthrough post op pain Last Documented On 3 8:35AM By Max Gordon ; [facility] Ondansetron HCl 4 MG Oral Tablet 04/10/2023 - 04/24/20 Provider: Max Gordon MD Diagnosis: 1-2 p o q 6-8h as needed for nausea Last Documented On 3 8:35AM By Max Gordon ; [facility] Aspirin Adult Low Strength 8 1 MG Oral Tablet Delayed Release 04/10/2023 - 05/25/2023 Provider: Max Gordon MD Diagnosis: twice a day Last Documented On 3 8:35AM By Max Gordon ; [facility] HYDROcodone-Acetaminophen 5- 325 MG Oral Tablet 04/10/2023 - 05/10/2023 Provider: Max Gordon MD Diagnosis: 2cve0-0m for post op pain Last Documented On 3 8:50AM By Max Gordon ; [facility], [facility] Medications Administered Includes: Administered Medications from this encounter No Administered Medications Recorded Vital Signs Includes: Vital Signs from this encounter Vital Name 04/21/2023 10:12A Height (in) 68 Weight (lb) 345 Body Mass Index 52.5 Body Surface Area 2.6 Pain Level 10 Note: lc Last Documented: On 04/21/2023 10:12A M ; [facility], [facility] Results Includes: Results discussed during this encounter No Results Recorded For Specified Dates History of Present Illness Includes: History of Present Illness from this encounter DWIGHT Wilks is a 52 year old male. - Symptoms catching, locking, giving way, popping motrin and elevated, and not walking on it makes the pain better walking on it makes the pain worse. - Allergy list reviewed - Problem list reviewed - Medication list reviewed - Previous history of new onset pain 2021 Injury is not work related or an automotive accident. Year ago knee hyper extended off and on for years - Patient pain level from 1-10: 10 - Yes, previous treatment. ortho by hospital - History of Injections Medications used for this condition: kiesha Patient is here today for follow-up of his left knee scope with partial medial lateral meniscectomies and chondroplasty of patellofemoral and medial compartments. surgery date was 04/11/2023. Patient states she has not felt like this is helpful yet his knee is still popping and swelling and using a cane. He has not seen any changes yet he has been having a lot of swelling up in the left thigh area. He does have a history of a DVT in the past on the right lower extremity he is taking aspirin. He is concerned about this not helping as he does not want to put this off a long period of time if he does have to have a knee replacement. Social History Description Last Updated Alcohol use 02/13/2023 Last Documented On 3 10:11AM ; [facility] Tobacco non-user 02/13/2023 Last Documented On 3 10:11AM ; [facility], [facility] No caffeine use 02/13/2023 Last Documented On 3 10:11AM ; [facility], [facility] No recent change in diet 02/13/2023 Last Documented On 3 10:11AM ; [facility], [facility] Not a current smoker. 02/13/2023 Last Documented On 3 10:11AM ; [facility] Not exercising regularly 02/13/2023 Last Documented On 3 10:11AM ; [facility] Not using drugs 02/13/2023 Last Documented On 3 10:11AM ; [facility] Smoking Status Unknown Procedures and Surgical History Includes: Procedures from this encounter Procedures Code Diagnosis Performing Provider Service L ocation Service Date use of tobacco assessment performed 1000F Last Documented On 3 10:11AM ; [facility], [facility] review of medications documented 1160F Last Documented On 3 10:11AM ; [facility], [facility] an X-ray was performed [facility] [address] Last Documented On 3 10:11AM ; [facility] Surgical History Last Updated History of back surgery 02/13/2023 Last Documented On 3 10:11AM ; [facility], [facility] Past Surgical History: Right Leg-Blood C lot ~right hand ~wisdom teeth 02/13/2023 Last Documented On 3 10:11AM ; [facility], [facility] Medical History Includes: Medical History addressed during this encounter Description Last Updated History of arthritis 02/13/2023 Last Documented On 3 10:11AM ; [facility] History of depression 02/13/2023 Last Documented On 3 10:11AM ; [facility] History of Heartburn / Acid Reflux 02/13 Last Documented On 3 10:11AM ; [facility] History of History of Blood Clots 2022 Last Documented On 3 10:11AM ; [facility], [facility] History of Hypertension 02/13/2023 Last Documented On 3 10:11AM ; [facility] History of Sleep Apnea 02/13/2023 Last Documented On 3 10:11AM ; [facility], [facility] History of Thyroid Disease 02/13/2023 Last Documented On 3 10:11AM ; [facility] Family History Includes: Family History addressed during this encounter Description Last Updated Family history of cancer father ~mother 02/13/2023 Last Documented On 3 10:11AM ; [facility] Family history of heart disease both gra ndparents 02/13/2023 Last Documented On 3 10:11AM ; [facility] Review of Systems Includes: Review of Systems from this encounter Systemic: Feeling tired. No recent weight loss. Recent weight gain. Head: Headache. No sinus pain. Eyes: No vision problems and no Cataracts. Glasses/Contacts. No Glaucoma. Otolaryngeal: Hearing loss and tinnitus. Cardiovascular: No chest pain or discomfort and no palpitations. Hypertension. No High Cholesterol. Pulmonary: No daytime asthma symptoms and no chronic cough. No wheezing. Gastrointestinal: Heartburn. No abdominal pain. Indigestion and Acid Reflux. No Peptic Ulcer, no GI Stomach Bleed, and no Ulcers. Endocrine: No hot flashes. Muscle weakness. No Diabetes, no Hypothyroid, and no Hyperthyroid. Hematologic: No easy bleeding, no tendency for easy bruising, and no Anemia. Musculoskeletal: Arthritis and lower back pain. No soft tissue swelling. Pain localized to one or more joints. Neurological: Dizziness. No convulsions. Numbness. Psychological: Anxiety, emotional lability, depression, insomnia, and crying for no reason. Skin: No dry skin. No Ulcers. Scars. No rash. Allergic and Immunologic: Complaint of seasonal allergic reaction. Mental Status Includes: Mental Status from this encounter Description Anxiety Functional Status Includes: Functional Status from this encounter No Functional Status Recorded Physical Exam Includes: Physical Exam from this encounter Allergies Includes: Active Allergies Substance Type Reaction Onset Date Resolved Date Statu s Percocet Allergy 02/13/2023 Active Last Documented On 4 10:48AM ; [facility] penicillAMINE Allergy 02/13/2023 Activ e Last Documented On 4 10:48AM ; [facility] Encounters Encounter Provider Location Date Check-In Time Check-Out Time Diagnosis Post Op [facility]:04[facility] 10:48AM Overweight Insurance Includes: Active Insurance Policies Plan Name Member ID Group # Subscriber Relationship Effect reji Dates 1 - PRIME [id number] Conrado Wilks Self Clinical Notes Includes: Clinical Notes from this encounter * Progress note Date Encounter Last Documented by 04/21/2023 Post Op Last documented on 04/21/2023; 11:45 AM, Vinny Grewal PA-C; [facility], [facility] Active Problems & Conditions - Joint Pain in the Left Knee Chief Complaint The Chief Complaint is: Left knee pain. Referred Here Referred by PCP. History of Present Illness Conrado Wilks is a 52 year old male. - Symptoms catching, locking, giving way, popping motrin and elevated, and not walking on it makes the pain better walking on it makes the pain worse. - Allergy list reviewed - Problem list reviewed - Medication list reviewed - Previous history of new onset pain 2021 Injury is not work related or an automotive accident. Year ago knee hyper extended off and on for years - Patient pain level from 1-10: 10 - Yes, previous treatment. ortho by hospital - History of Injections Medications used for this condition: kiesha Patient is here today for follow-up of his left knee scope with partial medial lateral meniscectomies and chondroplasty of patellofemoral and medial compartments. surgery date was 04/11/2023. Patient states she has not felt like this is helpful yet his knee is still popping and swelling and using a cane. He has not seen any changes yet he has been having a lot of swelling up in the left thigh area. He does have a history of a DVT in the past on the right lower extremity he is taking aspirin. He is concerned about this not helping as he does not want to put this off a long period of time if he does have to have a knee replacement. Current Medication - Aspirin Adult Low Strength 81 MG Oral Tablet Delayed Release twice a day, 45 days, 0 refills - Cyclobenzaprine HCl 10 MG Oral Tablet 90 days, 0 refills - Esomeprazole Magnesium 40 MG Oral Capsule Delayed Release 90 days, 0 refills - HYDROcodone-Acetaminophen 5-325 MG Oral Tablet 4ydr0-3u for post op pain, 30 days, 0 refills - Lisinopril-hydroCHLOROthiazide 10-12.5 MG Oral Tablet 90 days, 0 refills - Ondansetron HCl 4 MG Oral Tablet 1-2 p o q 6-8h as needed for nausea, 14 days, 0 refills - rOPINIRole HCl 2 MG Oral Tablet 90 days, 0 refills - Venlafaxine HCl ER 75 MG Oral Capsule Extended Release 24 Hour 90 days, 0 refills Past Medical/Surgical History Diagnoses: History of Blood Clots Sleep Apnea Heartburn / Acid Reflux Thyroid Disease Hypertension. Arthritis. Depression Surgical: - Past Surgical History: Right Leg-Blood Clot right hand wisdom teeth - Back surgery Social History Not a current smoker. Current diet: No recent change in diet. Caffeine use: No caffeine use. Tobacco use: Tobacco non-user. Alcohol: Alcohol use. Drug Use: Not using drugs. Habits: Not exercising regularly. Allergies - penicillAMINE - Percocet Family History Cancer father mother Heart disease both grandparents Review Of Systems Systemic: Feeling tired. No recent weight loss. Recent weight gain. Head: Headache. No sinus pain. Eyes: No vision problems and no Cataracts. Glasses/Contacts. No Glaucoma. Otolaryngeal: Hearing loss and tinnitus. Cardiovascular: No chest pain or discomfort and no palpitations. Hypertension. No High Cholesterol. Pulmonary: No daytime asthma symptoms and no chronic cough. No wheezing. Gastrointestinal: Heartburn. No abdominal pain. Indigestion and Acid Reflux. No Peptic Ulcer, no GI Stomach Bleed, and no Ulcers. Endocrine: No hot flashes. Muscle weakness. No Diabetes, no Hypothyroid, and no Hyperthyroid. Hematologic: No easy bleeding, no tendency for easy bruising, and no Anemia. Musculoskeletal: Arthritis and lower back pain. No soft tissue swelling. Pain localized to one or more joints. Neurological: Dizziness. No convulsions. Numbness. Psychological: Anxiety, emotional lability, depression, insomnia, and crying for no reason. Skin: No dry skin. No Ulcers. Scars. No rash. Allergic and Immunologic: Complaint of seasonal allergic reaction. Physical Findings - Vitals taken 04/21/2023 10:12 am lc Height 68 in Weight 345 lbs Body Mass Index 52.5 kg/m2 Body Surface Area 2.6 m2 Pain Level 10 Incision sites clean dry intact no evidence of any infection he does have some swelling up in the left anterior thigh does have some pain in the left lower extremity to palpation over the gastroc area using a cane to walk with range of motion was 0 to about 90 today. Tests Patient's Doppler ultrasound was done today and it was negative I spoke with the chemistry technical officer on the phone and will let the patient know this also. Assessment - Overweight Left knee scope with partial medial lateral meniscectomies chondroplasty patellofemoral medial compartments. Surgery date was 04/11/2023 Previous Tests Imaging: X-Ray: An X-ray was performed [facility]. Counseling/Education - Lose weight Plan StartCited - Pain in left knee Therapy/Physical Therapy: Knee Instructions: See PT order attached EndCited Patient was seen by myself Vinny Grewal PA-C. Patient will follow up with Dr. Gordon in a month I explained to him in detail that this would be the least invasive procedure for him and at some point in the future he may require a knee replacement but we try to do the least invasive things to start with. We went over the need for some physical therapy after this he says due to the cost of his co-pay he does not want to go to physical therapy more than least 1 visit I think it is okay for him to do to be taught a home program. With the swelling today that he has we will get a Doppler ultrasound to rule out DVT as he has had a history of 1 of those in the past and he is overweight. Sutures taken out today. Notes This dictation was done with voice recognition software and may contain errors and omissions. Practice Management Use of tobacco assessment performed Review of medications documented. Care Team - Tosha Clements Md - UPPER C[employer]TER
--- OUTSIDE RECORDS SUMMARY | 2024-08-08 23:21 | XMS_ITS | Clinical Summary ---
Author Organization [facility] , [facility] Address [address] [place] [address] Phone Care Team Providers Care Wet Cotton Feeder Name Role Phone Heidi GARCIA, Max Unavailable [phone] Starr Garcia, Tosha Unavailable [phone] Reason for Visit and Chief Complaint The Chief Complaint is: Left knee pain Problems Includes: Problems addressed during this encounter and other active Problems All Visits Onset Date Resolved Date Provider Condition S tatus Joint Pain in Both Knees 11/16/2023 Max cannon MD Active Last Documented On 4 10:48AM ; [facility], [facility] Joint Pain in the Left Knee 02/13/2023 Vinny Grewal PA-C Active Last Documented On 3 10:15AM ; [facility], [facility] Plan of Treatment Patient is a good candidate for arthroscopy left knee we discussed the details the operation risk benefits recovery time he understands that needs to work on weight loss and exercise low impact program to avoid progression of his early mild osteoarthritis and hopefully after his procedure he can be more able to engage in low impact exercise to work on that plan we will see him good proceed with scheduling accordingly outpatient basis near future he is otherwise healthy good candidate for outpatient surgery - Last Documented On 02/28/2023 9:08AM ; [facility], [facility] Instructions to patient Lose weight Last Documented On 3 8:53AM ; [facility], [facility] Assessments Includes: Assessments from this encounter Findings - Overweight - Last Documented On 02/28/2023 9:08AM ; [facility], [facility] Left knee mechanical locking and swelling loss of motion pain related to medial lateral meniscus tears complex type mild chondromalacia failed conservative treatment - Last Documented On 02/28/2023 9:08AM ; [facility], [facility] Instructions Includes: Instructions from this encounter Instructions to patient Lose weight Last Documented On 3 8:53AM ; [facility] Medical Equipment - Implanted Devices Includes: Current Devices No Medical Equipment Recorded Medications Includes: Medications discussed during this encounter and other current Medications Current Medications (continue as prescribed) Esomeprazole Magnesium 40 MG Oral Capsule, delayed-release 10/04/2023 Provider: Tosha Clements Md Diagnosis: Last Documented On 4 10:48AM By Lissa Hernandez ; [facility], [facility] rOPINIRole HCl 2 MG Oral Tablet 10/04/2023 Provider: Felicitas Saini NP Diagnosis: Last Documented On 4 10:48AM By Lissa Hernandez ; [facility], [facility] Vitamin D (Ergocalciferol) 1 .25 MG (76170 UT) Oral Capsule, conventional 09/27/2023 Provider: ARLENE ELIAS Diagnosis: Last Documented On 4 10:48AM By Lissa Hernadnez ; [facility], [facility] Topiramate 25 MG Oral Tablet 08/10/2023 Provider: Tosha Clements Md Diagnosis: Last Documented On 4 10:48AM By Lissa Hernandez ; [facility], [facility] buPROPion HCl ER (XL) 150 MG Oral Tablet, extended-release 24 hour 08/10/2023 Provider: Tosha zepeda Md Diagnosis: Last Documented On 4 10:48AM By Lissa Hernandez ; [facility], [facility] Esomeprazole Magnesium 40 MG Oral Capsule, delayed-release 07/29/2023 Provider: Tosha Clements Md Diagnosis: Last Documented On 4 10:48AM By Lissa Hernandez ; [facility], [facility] Lisinopril-hydroCHLOROthiazi de 10-12.5 MG Oral Tablet 07/05/2023 Provider: Tosha Clements Md Diagnosis: Last Documented On 4 10:48AM By Lissa Hernandez ; [facility] Cyclobenzaprine HCl 10 MG Oral Tablet 07/04/2023 Pro vider: Diagnosis: Last Documented On 4 10:48AM By Lissa Hernandez ; [facility] Past Medications on file traMADol HCl 50 MG Oral Tablet 11/16/2023 - 01/15/2024 Provider: Max Gordon MD Diagnosis: 1 - 2 Q HS PRN Last Documented On 4 11:21AM By Max Gordon ; [facility], [facility] traMADol HCl 50 MG Oral Tablet 04/10/2023 - 04/20/2023 Provider: Max Gordon MD Diagnosis: 1-2 po q 4-6h PRN for breakthrough post op pain Last Documented On 3 8:35AM By Max Gordon ; [facility], [facility] Ondansetron HCl 4 MG Oral Tablet 04/10/2023 - 04/24/20 Provider: Max Gordon MD Diagnosis: 1-2 p o q 6-8h as needed for nausea Last Documented On 3 8:35AM By Max Gordon ; [facility], [facility] Aspirin Adult Low Strength 8 1 MG Oral Tablet Delayed Release 04/10/2023 - 05/25/2023 Provider: Max Gordon MD Diagnosis: twice a day Last Documented On 3 8:35AM By Max Gordon ; [facility], [facility] HYDROcodone-Acetaminophen 5- 325 MG Oral Tablet 04/10/2023 - 05/10/2023 Provider: Max Gordon MD Diagnosis: [id number] for post op pain Last Documented On 3 8:50AM By Max Gordon ; [facility], [facility] Medications Administered Includes: Administered Medications from this encounter No Administered Medications Recorded Vital Signs Includes: Vital Signs from this encounter Vital Name 02/28/2023 08:53A Height (in) 68 Weight (lb) 345 Body Mass Index 52.5 Body Surface Area 2.6 Note: am Last Documented: On 02/28/2023 8:53AM ; [facility], [facility] Results Includes: Results discussed during this encounter [...] of Injections Medications used for this condition: motrin Follow-up left knee after MRI patient continues have swelling pain catching occasional locking failed conservative treatment with activity modification and exercise program he also has a history of herniated disc in his back after injury which is made him somewhat sedentary because of his back problems but just simple actives daily living such as walking climbing stairs get up from seated position are difficult as well as driving due to his mechanical knee problem is not getting better with conservative treatment including use of nonsteroidal anti-inflammatories and activity modification exercise Social History Description Last Updated Alcohol use 02/13/2023 Last Documented On 3 8:53AM ; [facility] Tobacco non-user 02/13/2023 Last Documented On 3 8:53AM ; [facility] No caffeine use 02/13/2023 Last Documented On 3 8:53AM ; [facility], [facility] No recent change in diet 02/13/2023 Last Documented On 3 8:53AM ; [facility] Not a current smoker. 02/13/2023 Last Documented On 3 8:53AM ; [facility], [facility] Not exercising regularly 02/13/2023 Last Documented On 3 8:53AM ; [facility], [facility] Not using drugs 02/13/2023 Last Documented On 3 8:53AM ; [facility], [facility] Smoking Status Unknown Procedures and Surgical History Includes: Procedures from this encounter Procedures Code Diagnosis Performing Provider Service L ocation Service Date use of tobacco assessment performed 1000F Last Documented On 3 8:53AM ; [facility], [facility] review of medications documented 1160F Last Documented On 3 8:53AM ; [facility], [facility] an X-ray was performed [id number] [id number] Last Documented On 3 8:53AM ; [facility], [facility] Surgical History Last Updated History of back surgery 02/13/2023 Last Documented On 3 8:53AM ; [facility] Past Surgical History: Right Leg-Blood C lot ~right hand ~wisdom teeth 02/13/2023 Last Documented On 3 8:53AM ; [facility], [facility] Medical History Includes: Medical History addressed during this encounter Description Last Updated History of arthritis 02/13/2023 Last Documented On 3 8:53AM ; [facility], [facility] History of depression 02/13/2023 Last Documented On 3 8:53AM ; [facility] History of Heartburn / Acid Reflux 02/13 Last Documented On 3 8:53AM ; [facility], [facility] History of History of Blood Clots 2022 Last Documented On 3 8:53AM ; [facility] History of Hypertension 02/13/2023 Last Documented On 3 8:53AM ; [facility] History of Sleep Apnea 02/13/2023 Last Documented On 3 8:53AM ; [facility], [facility] History of Thyroid Disease 02/13/2023 Last Documented On 3 8:53AM ; [facility], [facility] Family History Includes: Family History addressed during this encounter Description Last Updated Family history of cancer father ~mother 02/13/2023 Last Documented On 3 8:53AM ; [facility], [facility] Family history of heart disease both gra ndparents 02/13/2023 Last Documented On 3 8:53AM ; [facility], [facility] Review of Systems Includes: Review of [...] Active Last Documented On 4 10:48AM ; [facility] penicillAMINE Allergy 02/13/2023 Activ e Last Documented On 4 10:48AM ; [facility] Encounters Encounter Provider Location Date Check-In Time Check-Out Time Diagnosis Follow Up Max Gordon MD [facility] 3 8:48AM 9:06AM Overweight Insurance Includes: Active Insurance Policies Plan Name Member ID Group # Subscriber Relationship Effect reji Dates 1 - PRIME [id number] Conrado Wilks Self Clinical Notes Includes: Clinical Notes from this encounter * Progress note Date Encounter Last Documented by 02/28/2023 Follow Up Last documented on 02/28/2023; 9:08 AM, Max Gordon MD; [facility] Active Problems & Conditions - Joint Pain [...] of Injections Medications used for this condition: motrin Follow-up left knee after MRI patient continues have swelling pain catching occasional locking failed conservative treatment with activity modification and exercise program he also has a history of herniated disc in his back after injury which is made him somewhat sedentary because of his back problems but just simple actives daily living such as walking climbing stairs get up from seated position are difficult as well as driving due to his mechanical knee problem is not getting better with conservative treatment including use of nonsteroidal anti-inflammatories and activity modification exercise Current Medication - Cyclobenzaprine HCl 10 MG Oral Tablet [...] allergic reaction. Physical Findings - Vitals taken 02/28/2023 08:53 am am Height 68 in 60 - 80 Weight 345 lbs 125 - 225 Body Mass Index 52.5 kg/m2 Body Surface Area 2.6 m2 Left knee positive Milind's for medial meniscus click posterior medial joint line 1+ effusion lateral joint line is also tender full extension 120 degrees flexion normal stability on varus valgus and posterior drawer testing slight antalgic gait noted Tests MRI of the left knee shows a complex posterior horn medial meniscus tear with a large vertical tear posterior horn also some flap tear of the anterior posterior horn of the lateral meniscus there is some mild chondromalacia of the medial compartment patellofemoral compartment as well Assessment - Overweight Left knee mechanical locking and swelling loss of motion pain related to medial lateral meniscus tears complex type mild chondromalacia failed conservative treatment Previous Tests Imaging: X-Ray: An X-ray was performed [facility]. Counseling/Education - Lose weight Plan Patient is a good candidate for arthroscopy left knee we discussed the details the operation risk benefits recovery time he understands that needs to work on weight loss and exercise low impact program to avoid progression of his early mild osteoarthritis and hopefully after his procedure he can be more able to engage in low impact exercise to work on that plan we will see him good proceed with scheduling accordingly outpatient basis near future he is otherwise healthy good candidate for outpatient surgery Notes This dictation was done with voice recognition software and may contain errors and omissions. Practice Management Use of tobacco assessment performed Review of medications documented. Care Team - Tosha Clements Md - AGRICULTURE TECHNICIAN
--- OUTSIDE RECORDS SUMMARY | 2024-08-08 23:21 | XMS_ITS | Clinical Summary ---
Author Organization [facility] , [facility] Address [address] [place] [phone] Phone Care Team Providers Care Landman Name Role Phone Heidi GARCIA, Max Unavailable [phone] Starr Garcia, Tosha Unavailable [phone] Reason for Visit and Chief Complaint [Patient Encounter] Problems Includes: Problems addressed during this encounter and other active Problems All Visits Onset Date Resolved Date Provider Condition S tatus Joint Pain in Both Knees 11/16/2023 Max cannon MD Active Last Documented On 4 10:48AM ; [facility], [facility] Joint Pain in the Left Knee 02/13/2023 Vinny Grewal PA-C Active Last Documented On 3 10:15AM ; [facility], [facility] Plan of Treatment Pending Tests Order Diagnosis Results Due Ordering P rovider Therapy - Physical Therapy Knee 03/08/23 Max Gordon MD Last Documented On 3 11:01AM ; [facility], [facility] Assessments Includes: Assessments from this encounter No Assessments Recorded Medical Equipment - Implanted Devices Includes: Current Devices No Medical Equipment Recorded Medications Includes: Medications discussed during this encounter and other current Medications Current Medications (continue as prescribed) Esomeprazole Magnesium 40 MG Oral Capsule, delayed-release 10/04/2023 Provider: Tosha Clements Md Diagnosis: Last Documented On 4 10:48AM By Lissa Hernandez ; [facility], [facility] rOPINIRole HCl 2 MG Oral Tablet 10/04/2023 Provider: Felicitas Saini NP Diagnosis: Last Documented On 4 10:48AM By Lissa Hernandez ; [facility], [facility] Vitamin D (Ergocalciferol) 1 .25 MG (09916 UT) Oral Capsule, conventional 09/27/2023 Provider: ARLENE ELIAS Diagnosis: Last Documented On 4 10:48AM By Lissa Hernandez ; [facility], [facility] Topiramate 25 MG Oral Tablet 08/10/2023 Provider: Tosha Clements Md Diagnosis: Last Documented On 4 10:48AM By Lissa Hernandez ; [facility], [facility] buPROPion HCl ER (XL) 150 MG Oral Tablet, extended-release 24 hour 08/10/2023 Provider: Tosha zepeda Md Diagnosis: Last Documented On 4 10:48AM By Lissa Hernandez ; [facility], [facility] Esomeprazole Magnesium 40 MG Oral Capsule, delayed-release 07/29/2023 Provider: Tosha Clements Md Diagnosis: Last Documented On 4 10:48AM By Lissa Hernandez ; [facility], [facility] Lisinopril-hydroCHLOROthiazi de 10-12.5 MG Oral Tablet 07/05/2023 Provider: Tosha Clements Md Diagnosis: Last Documented On 4 10:48AM By Lissa Hernandez ; [facility], [facility] Cyclobenzaprine HCl 10 MG Oral Tablet 07/04/2023 Pro vider: Diagnosis: Last Documented On 4 10:48AM By Lissa Hernandez ; [facility], [facility] Medications Administered Includes: Administered Medications from [...] Active Last Documented On 4 10:48AM ; [facility] penicillAMINE Allergy 02/13/2023 Activ e Last Documented On 4 10:48AM ; [facility] Encounters Encounter Provider Location Date Check-In Time Check-Out Time Diagnosis [Patient Encounter] Max Gordon MD 04/11/2023 11:00AM 11:59PM Insurance Includes: Active Insurance Policies Plan Name Member ID Group # Subscriber Relationship Effect reji Dates 1 - PRIME [id number] Conrado Chambers Clinical Notes Includes: Clinical Notes from this encounter No Clinical Notes Recorded
== END 2024-08-08 23:59 | disposition home or self-care (01) ==
LOC: LAB 12:10
PROVIDERS: PCP Family Medicine; Visit Provider Nurse Practitioner Family
DX: I50.33 Acute on chronic diastolic (congestive) heart failure (principal); R53.83 Other fatigue
CPT/HCPCS: 36415; 80048; 83880; 85025

== ENCOUNTER 2024-08-15 13:49 | Outpatient (CLI) | payer OTHER, SELFPAY ==
[2024-08-15 13:54] LABS: Immunoglobulin A, Qn, Serum ND; Immunoglobulin G, Qn, Serum ND; Immunoglobulin M, Qn, Serum ND
[2024-08-15 15:28] LABS: Anion Gap 16.5 mEq/L (5-15); Blood Urea Nitrogen 39 mg/dl (9-20); Calcium 9.4 mg/dl (8.4-10.2); Carbon Dioxide 26 mmol/L (22.0-30.0); Chloride 100 mmol/L (98-107); Estimated Glomerular Filt Rate 63 ml/min (>60); GFR (African American) 76 ML/MIN (>60); Glucose 126 mg/dl (74-100); Potassium 5.5 mmoL/L (3.5-5.1); Sodium 137 mmol/L (136-145)
[2024-08-15 15:45] LABS: Hemoglobin A1C 6.3 % (4.0-6.0)
[2024-08-15 16:18] LABS: Vitamin B12 321 pg/mL (239-931)
[2024-08-16 14:22] LABS: Albumin 3.4 g/dL (2.9-4.4); Alpha-1-Globulin 0.3 g/dL (0.0-0.4); Alpha-2-Globulin 0.9 g/dL (0.4-1.0); Gamma Globulin 0.8 g/dL (0.4-1.8); Protein, Total 6.7 g/dL (6.0-8.5)
== END 2024-08-15 23:59 | disposition home or self-care (01) ==
LOC: LAB 13:50
PROVIDERS: Nurse Practitioner Family; PCP Family Medicine; Visit Provider Specialist
DX: I27.20 Pulmonary hypertension, unspecified (principal); I10 Essential (primary) hypertension; R94.31 Abnormal electrocardiogram [ECG] [EKG]; R73.09 Other abnormal glucose; R42 Dizziness and giddiness; R53.83 Other fatigue; R60.0 Localized edema; R20.2 Paresthesia of skin; R20.0 Anesthesia of skin; G62.9 Polyneuropathy, unspecified; E66.01 Morbid (severe) obesity due to excess calories; Z68.43 Body mass index [BMI] 50.0-59.9, adult; Z82.49 Family history of ischemic heart disease and other diseases of the circulatory system
CPT/HCPCS: 36415; 80048; 82607; 83036; 84155; 84165; 86334

== ENCOUNTER 2024-08-28 09:06 | Outpatient (CLI) | payer OTHER, SELFPAY ==
--- OUTSIDE RECORDS SUMMARY | 2024-08-28 09:09 | XMS_ITS | Clinical Summary ---
Author Organization [facility] , [facility] Address [address] [place] [address] Phone Care Team Providers Care Clinical Documentation Consultant Name Role Phone Heidi GARCIA, Max Unavailable [phone] Starr Garcia, Tosha Unavailable [phone] Reason for Visit and Chief Complaint The Chief Complaint is: Left knee pain Problems Includes: Problems addressed during this encounter and other active Problems All Visits Onset Date Resolved Date Provider Condition S tatus Joint Pain in Both Knees 11/16/2023 Max cannon MD Active Last Documented On 4 10:48AM ; [facility] Joint Pain in the Left Knee 02/13/2023 Vinny Grewal PA-C Active Last Documented On 3 10:15AM ; [facility] Plan of Treatment Patient was seen [...] - Last Documented On 04/21/2023 11:45AM ; [facility] Pending Tests Order Diagnosis Results Due Ordering P rovider Radiology - MRI MRI Knee Pain in left knee 02/27/23 Roxie Grewal PA-C Last Documented On 3 12:07PM ; [facility] Therapy - Physical Therapy Knee Pain in left knee Vinny Grewal PA-C Last Documented On 3 11:45AM ; [facility] Instructions to patient Lose weight Last Documented On 3 10:11AM ; [facility], [facility] Assessments Includes: Assessments from this encounter Findings - Overweight - Last Documented On 04/21/2023 11:45AM ; [facility], [facility] Left knee scope with partial medial lateral meniscectomies chondroplasty patellofemoral medial compartments. Surgery date was 04/11/2023 - Last Documented On 04/21/2023 11:45AM ; [facility] Instructions Includes: Instructions from this encounter Instructions to patient Lose weight Last Documented On 3 10:11AM ; [facility] Medical Equipment - Implanted Devices Includes: Current Devices No Medical Equipment Recorded Medications Includes: Medications discussed during this encounter and other current Medications Current Medications (continue as prescribed) Esomeprazole Magnesium 40 MG Oral Capsule, delayed-release 10/04/2023 Provider: Tosha Clements Md Diagnosis: Last Documented On 4 10:48AM By Lissa Hernandez ; [facility] rOPINIRole HCl 2 MG Oral Tablet 10/04/2023 Provider: Felicitas Saini NP Diagnosis: Last Documented On 4 10:48AM By Lissa Hernandez ; [facility] Vitamin D (Ergocalciferol) 1 .25 MG (03420 UT) Oral Capsule, conventional 09/27/2023 Provider: ARLENE ELIAS Diagnosis: Last Documented On 4 10:48AM By Lissa Hernandez ; [facility], [facility] Topiramate 25 MG Oral Tablet 08/10/2023 Provider: Tosha Clements Md Diagnosis: Last Documented On 4 10:48AM By Lissa Hernandez ; [facility] buPROPion HCl ER (XL) 150 MG Oral Tablet, extended-release 24 hour 08/10/2023 Provider: Tosha zepeda Md Diagnosis: Last Documented On 4 10:48AM By Lissa Hernandez ; [facility], [facility] Esomeprazole Magnesium 40 MG Oral Capsule, delayed-release 07/29/2023 Provider: Tosha Clements Md Diagnosis: Last Documented On 4 10:48AM By Lissa Hernandez ; [facility], [facility] Lisinopril-hydroCHLOROthiazi de 10-12.5 MG Oral Tablet 07/05/2023 Provider: Tosha Clements Md Diagnosis: Last Documented On 4 10:48AM By Lissa Hernandez ; [facility] Cyclobenzaprine HCl 10 MG Oral Tablet 07/04/2023 Pro vider: Diagnosis: Last Documented On 4 10:48AM By Lissa Hernandez ; [facility] Past Medications on file traMADol HCl 50 MG Oral Tablet 11/16/2023 - 01/15/2024 Provider: Max Gordon MD Diagnosis: 1 - 2 Q HS PRN Last Documented On 4 11:21AM By Max Gordon ; [facility] traMADol HCl 50 MG Oral Tablet 04/10/2023 - 04/20/2023 Provider: Max Gordon MD Diagnosis: 1-2 po q 4-6h PRN for breakthrough post op pain Last Documented On 3 8:35AM By Max Gordon ; [facility] Ondansetron HCl 4 MG Oral Tablet 04/10/2023 - 04/24/20 Provider: Max Gordon MD Diagnosis: 1-2 p o q 6-8h as needed for nausea Last Documented On 3 8:35AM By Max Gordon ; [facility] Aspirin Adult Low Strength 8 1 MG Oral Tablet Delayed Release 04/10/2023 - 05/25/2023 Provider: Max Gordon MD Diagnosis: twice a day Last Documented On 3 8:35AM By Max Gordon ; [facility] HYDROcodone-Acetaminophen 5- 325 MG Oral Tablet 04/10/2023 - 05/10/2023 Provider: Max Gordon MD Diagnosis: [id number] for post op pain Last Documented On 3 8:50AM By Max Gordon ; [facility], [facility] Medications Administered Includes: Administered Medications from this encounter No Administered Medications Recorded Vital Signs Includes: Vital Signs from this encounter Vital Name 04/21/2023 10:12A Height (in) 68 Weight (lb) 345 Body Mass Index 52.5 Body Surface Area 2.6 Pain Level 10 Note: lc Last Documented: On 04/21/2023 10:12A M ; [facility], [facility] Results Includes: Results discussed during this [...] Last Documented On 3 10:11AM ; [facility], [facility] Tobacco non-user 02/13/2023 Last Documented On 3 10:11AM ; [facility] No caffeine use 02/13/2023 Last Documented On 3 10:11AM ; [facility] No recent change in diet 02/13/2023 Last Documented On 3 10:11AM ; [facility] Not a current smoker. 02/13/2023 Last Documented On 3 10:11AM ; [facility] Not exercising regularly 02/13/2023 Last Documented On 3 10:11AM ; [facility] Not using drugs 02/13/2023 Last Documented On 3 10:11AM ; [facility] Smoking Status Unknown Procedures and Surgical History Includes: Procedures from this encounter Procedures Code Diagnosis Performing Provider Service L ocation Service Date use of tobacco assessment performed 1000F Last Documented On 3 10:11AM ; [facility] review of medications documented 1160F Last Documented On 3 10:11AM ; [facility], [facility] an X-ray was performed [facility] [id number] Last Documented On 3 10:11AM ; [facility] Surgical History Last Updated History of back surgery 02/13/2023 Last Documented On 3 10:11AM ; [facility] Past Surgical History: Right Leg-Blood C lot ~right hand ~wisdom teeth 02/13/2023 Last Documented On 3 10:11AM ; [facility], [facility] Medical History Includes: Medical History addressed during this encounter Description Last Updated History of arthritis 02/13/2023 Last Documented On 3 10:11AM ; [facility] History of depression 02/13/2023 Last Documented On 3 10:11AM ; [facility] History of Heartburn / Acid Reflux 02/13 Last Documented On 3 10:11AM ; [facility] History of History of Blood Clots 2022 Last Documented On 3 10:11AM ; [facility] History of Hypertension 02/13/2023 Last Documented On 3 10:11AM ; [facility] History of Sleep Apnea 02/13/2023 Last Documented On 3 10:11AM ; [facility] History of Thyroid Disease 02/13/2023 Last Documented On 3 10:11AM ; [facility] Family History Includes: Family History addressed during this encounter Description Last Updated Family history of cancer father ~mother 02/13/2023 Last Documented On 3 10:11AM ; [facility] Family history of heart disease both gra ndparents 02/13/2023 Last Documented On 3 10:11AM ; [facility] Review of Systems Includes: Review of [...] Active Last Documented On 4 10:48AM ; [facility] penicillAMINE Allergy 02/13/2023 Activ e Last Documented On 4 10:48AM ; [facility] Encounters Encounter Provider Location Date Check-In Time Check-Out Time Diagnosis Post Op [facility] Overweight Insurance Includes: Active Insurance Policies Plan Name Member ID Group # Subscriber Relationship Effect reji Dates 1 - PRIME [id number] Conrado Wilks Self Clinical Notes Includes: Clinical Notes from this encounter * Progress note Date Encounter Last Documented by 04/21/2023 Post Op Last documented on 04/21/2023; 11:45 AM, Vinny Grewal PA-C; [facility], [facility] Active Problems & Conditions - Joint [...] refills - HYDROcodone-Acetaminophen 5-325 MG Oral Tablet [id number] for post op pain, 30 days, 0 [...] it was negative I spoke with the tower technician on the phone and will let the patient know this also. Assessment - Overweight Left knee scope with partial medial lateral meniscectomies chondroplasty patellofemoral medial compartments. Surgery date was 04/11/2023 Previous Tests Imaging: X-Ray: An X-ray was performed [facility]. Counseling/Education - Lose weight Plan StartCited - [...] Care Team - Tosha Clements Md - CRIME PREVENTION POLICE OFFICER
--- OUTSIDE RECORDS SUMMARY | 2024-08-28 09:09 | XMS_ITS ---
Care Plan - [facility], [facility] Created on: August 28, 2024 oCnrado Wilks : 1970 Sex: Male Author Organization [facility] Address [address] [place] [phone] Phone Care Team Providers Care Chief Mechanical Officer Name Role Phone Heidi GARCIA, Max Unavailable [phone] Starr Garcia, Tosha Unavailable [phone]
--- OUTSIDE RECORDS SUMMARY | 2024-08-28 09:09 | XMS_ITS | Clinical Summary ---
Author Organization [facility] Address [address] [place] [phone] Phone Care Team Providers Care Associate Professor Of Library Media Name Role Phone Heidi GARCIA, Max Unavailable [phone] Starr Garcia, Tosha Unavailable [phone] Reason for Visit and Chief Complaint [Patient Encounter] Problems Includes: Problems addressed during this encounter and other active Problems All Visits Onset Date Resolved Date Provider Condition S tatus Joint Pain in Both Knees 11/16/2023 Max cannon MD Active Last Documented On 4 10:48AM ; [facility], [facility] Joint Pain in the Left Knee 02/13/2023 Vinny Grewal PA-C Active Last Documented On 3 10:15AM ; [facility], [facility] Plan of Treatment Pending Tests Order Diagnosis Results Due Ordering P rovider Therapy - Physical Therapy Knee 03/08/23 Max Gordon MD Last Documented On 3 11:01AM ; [facility], [facility] Assessments Includes: Assessments from this encounter No Assessments Recorded Medical Equipment - Implanted Devices Includes: Current Devices No Medical Equipment Recorded Medications Includes: Medications discussed during this encounter and other current Medications Current Medications (continue as prescribed) Esomeprazole Magnesium 40 MG Oral Capsule, delayed-release 10/04/2023 Provider: Tosha Clements Md Diagnosis: Last Documented On 4 10:48AM By Lissa Hernandez ; [facility], [facility] rOPINIRole HCl 2 MG Oral Tablet 10/04/2023 Provider: Felicitas Saini NP Diagnosis: Last Documented On 4 10:48AM By Lissa Hernandez ; [facility], [facility] Vitamin D (Ergocalciferol) 1 .25 MG (32352 UT) Oral Capsule, conventional 09/27/2023 Provider: ARLENE ELIAS Diagnosis: Last Documented On 4 10:48AM By Lissa Hernandez ; [facility], [facility] Topiramate 25 MG Oral Tablet 08/10/2023 Provider: Tosha Clements Md Diagnosis: Last Documented On 4 10:48AM By Lissa Hernandez ; [facility], [facility] buPROPion HCl ER (XL) 150 MG Oral Tablet, extended-release 24 hour 08/10/2023 Provider: Tosha zepeda Md Diagnosis: Last Documented On 4 10:48AM By Lissa Hernandez ; [facility], [facility] Esomeprazole Magnesium 40 MG Oral Capsule, delayed-release 07/29/2023 Provider: Tosha Clements Md Diagnosis: Last Documented On 4 10:48AM By Lissa Hernandez ; [facility], [facility] Lisinopril-hydroCHLOROthiazi de 10-12.5 MG Oral Tablet 07/05/2023 Provider: Tosha Clements Md Diagnosis: Last Documented On 4 10:48AM By Lissa Hernandez ; [facility], [facility] Cyclobenzaprine HCl 10 MG Oral Tablet 07/04/2023 Pro vider: Diagnosis: Last Documented On 4 10:48AM By Lissa Hernandez ; [facility], [facility] Medications Administered Includes: Administered [...] Active Last Documented On 4 10:48AM ; [facility] penicillAMINE Allergy 02/13/2023 Activ e Last Documented On 4 10:48AM ; [facility] Encounters Encounter Provider Location Date Check-In Time Check-Out Time Diagnosis [Patient Encounter] Max Gordon MD 04/11/2023 11:00AM 11:59PM Insurance Includes: Active Insurance Policies Plan Name Member ID Group # Subscriber Relationship Effect reji Dates 1 - PRIME [id number] Conrado Chambers Clinical Notes Includes: Clinical Notes from this encounter No Clinical Notes Recorded
--- OUTSIDE RECORDS SUMMARY | 2024-08-28 09:09 | XMS_ITS | Clinical Summary ---
Author Organization [facility] Address [address] [place] [address] Phone Care Team Providers Care 911 Telecommunicator Name Role Phone Heidi GARCIA, Max Unavailable [phone] Satrr Garcia, Tosha Unavailable [phone] Reason for Visit and Chief Complaint The Chief Complaint is: BILATERAL KNEE PAIN Problems Includes: Problems addressed during this encounter and other active Problems Current Visit Onset Date Resolved Date Provider Conditio n Status Joint Pain in Both Knees 11/16/2023 Max cannon MD Active Last Documented On 4 10:48AM ; [facility], [facility] Past Visits Onset Date Resolved Date Provider Condition Status Joint Pain in the Left Knee 02/13/2023 Vinny Uri MARTI Active Last Documented On 3 10:15AM ; [facility], [facility] Plan of Treatment Risks and [...] - Last Documented On 12/15/2023 4:18PM ; [facility], [facility] Instructions to patient Lose weight Last Documented On 4 11:02AM ; [facility], [facility] Assessments Includes: Assessments from this encounter Findings - Overweight - Last Documented On 12/15/2023 4:18PM ; [facility], [facility] Instructions Includes: Instructions from this encounter Instructions to patient Lose weight Last Documented On 4 11:02AM ; [facility], [facility] Medical Equipment - Implanted Devices Includes: Current Devices No Medical Equipment Recorded Medications Includes: Medications discussed during this encounter and other current Medications Discontinued / Stopped on this date on 02/07/2023 Cyclobenzaprine HCl 10 MG Oral Tablet Pro vider: Diagnosis: Last Documented On 4 10:48AM By Lissa Hernandez ; [facility], [facility] rOPINIRole HCl 2 MG Oral Tablet Provider: Diagnosis: Last Documented On 4 10:48AM By Lissa Hernandez ; [facility], [facility] Esomeprazole Magnesium 40 MG Oral Capsule Delayed Release Provider: Tosha Clements Md Diagnosis: Last Documented On 4 10:48AM By Lissa Hernandez ; [facility], [facility] Venlafaxine HCl ER 75 MG Ora l Capsule Extended Release 24 Hour Provider: Tosha zepeda Md Diagnosis: Last Documented On 4 10:48AM By Lissa Hernandez ; [facility], [facility] Lisinopril-hydroCHLOROthiazi de 10-12.5 MG Oral Tablet Provider: Tosha Clements Md Diagnosis: Last Documented On 4 10:48AM By Lissa Hernandez ; [facility], [facility] New / Renewed during this visit Max Gordon MD on 11/16/2023 traMADol HCl 50 MG Oral Tablet Provider: Max Gordon MD 60 day supply: 60 tablet, 0 refills Diagnosis: 1 - 2 Q HS PRN Pharmacy: [facility]/pharmacy #[id number] [facility] [place], [address] - Last Documented On 4 11:21AM By Max Gordon ; [facility], [facility] Current Medications (continue as prescribed) Esomeprazole Magnesium 40 MG Oral Capsule, delayed-release 10/04/2023 Provider: Tosha Clements Md Diagnosis: Last Documented On 4 10:48AM By Lissa Hernandez ; [facility], [facility] rOPINIRole HCl 2 MG Oral Tablet 10/04/2023 Provider: Felicitas Saini NP Diagnosis: Last Documented On 4 10:48AM By Lissa Hernandez ; [facility], [facility] Vitamin D (Ergocalciferol) 1 .25 MG (06788 UT) Oral Capsule, conventional 09/27/2023 Provider: ARLENE ELIAS Diagnosis: Last Documented On 4 10:48AM By Lissa Hernandez ; [facility], [facility] Topiramate 25 MG Oral Tablet 08/10/2023 Provider: Tosha Clements Md Diagnosis: Last Documented On 4 10:48AM By Lissa Hernandez ; [facility], [facility] buPROPion HCl ER (XL) 150 MG Oral Tablet, extended-release 24 hour 08/10/2023 Provider: Tosha zepeda Md Diagnosis: Last Documented On 4 10:48AM By Lissa Hernandez ; [facility], [facility] Esomeprazole Magnesium 40 MG Oral Capsule, delayed-release 07/29/2023 Provider: Tosha Clements Md Diagnosis: Last Documented On 4 10:48AM By Lissa Hernandez ; [facility], [facility] Lisinopril-hydroCHLOROthiazi de 10-12.5 MG Oral Tablet 07/05/2023 Provider: Tosha Clements Md Diagnosis: Last Documented On 4 10:48AM By Lissa Hernandez ; [facility], [facility] Cyclobenzaprine HCl 10 MG Oral Tablet 07/04/2023 Pro vider: Diagnosis: Last Documented On 4 10:48AM By Lissa Hernandez ; [facility], [facility] Past Medications on file traMADol HCl 50 MG Oral Tablet 04/10/2023 - 04/20/2023 Provider: Max Gordon MD Diagnosis: 1-2 po q 4-6h PRN for breakthrough post op pain Last Documented On 3 8:35AM By Max Gordon ; [facility], [facility] Ondansetron HCl 4 MG Oral Tablet 04/10/2023 - 04/24/20 Provider: Max Gordon MD Diagnosis: 1-2 p o q 6-8h as needed for nausea Last Documented On 3 8:35AM By Max Gordon ; [facility], [facility] Aspirin Adult Low Strength 8 1 MG Oral Tablet Delayed Release 04/10/2023 - 05/25/2023 Provider: Max Gordon MD Diagnosis: twice a day Last Documented On 3 8:35AM By Max Gordon ; [facility] HYDROcodone-Acetaminophen 5- 325 MG Oral Tablet 04/10/2023 - 05/10/2023 Provider: Max Gordon MD Diagnosis: [id number] for post op pain Last Documented On 3 8:50AM By Max Gordon ; [facility] Medications Administered Includes: Administered Medications from this encounter No Administered Medications Recorded Vital Signs Includes: Vital Signs from this encounter Vital Name 11/16/2023 11:01A Height (in) 68 Weight (lb) 350 Body Mass Index 53.2 Body Surface Area 2.6 Note: BNA Last Documented: On 11/16/2023 11:01A M ; [facility] Results Includes: Results discussed during [...] Documented On 4 4:18PM ; [facility] Former smoker 11/16/2023 Last Documented On 4 4:18PM ; [facility], [facility] Never used drugs 11/16/2023 Last Documented On 4 4:18PM ; [facility], [facility] Alcohol use 02/13/2023 Last Documented On 4 10:48AM ; [facility], [facility] Tobacco non-user 02/13/2023 Last Documented On 4 10:48AM ; [facility], [facility] No caffeine use 02/13/2023 Last Documented On 4 10:48AM ; [facility], [facility] No recent change in diet 02/13/2023 Last Documented On 4 10:48AM ; [facility], [facility] Not a current smoker. 02/13/2023 Last Documented On 4 10:48AM ; [facility], [facility] Not exercising regularly 02/13/2023 Last Documented On 4 10:48AM ; [facility], [facility] Not using drugs 02/13/2023 Last Documented On 4 10:48AM ; [facility], [facility] Smoking Status Unknown Procedures and Surgical History Includes: Procedures from this encounter Procedures Code Diagnosis Performing Provider Service Location Service Date DRAIN/INJECT, JOINT/BURSA (RIGHT) Unilateral primary osteoarthritis, right knee Max Gordon MD [facility] 11/16/2023 Last Documented On 4 2:47PM ; [facility] Injection, betamethasone acetate 6mg per cc and betamethason [id number] Unilateral primary osteoarthritis, right knee Max Gordon MD [facility] 11/16/2023 Last Documented On 4 2:47PM ; [facility] X-RAY EXAM OF KNEE 1 OR 2 VIEWS (RIGHT) [id number] Unilateral primary osteoarthritis, right knee Max Gordon MD [facility] 11/16/2023 Last Documented On 4 2:47PM ; [facility] X-RAY EXAM OF KNEE 1 OR 2 VIEWS (LEFT) [id number] Unilateral primary osteoarthritis, left knee Max Gordon MD [facility] 11/16/2023 Last Documented On 4 2:47PM ; [facility], [facility] Surgical History Last Updated History [...] Documented On 4 4:18PM ; [facility] Maternal history of diabetes mellitus [...] 02/13/2023 Last Documented On 4 10:48AM ; [facility] Review of Systems Includes: Review of [...] Active Last Documented On 4 10:48AM ; [facility] penicillAMINE Allergy 02/13/2023 Activ e Last Documented On 4 10:48AM ; [facility], [facility] Encounters Encounter Provider Location Date Check-In Time Check-Out Time Diagnosis NEW PROBLEM/EST PT Max Gordon MD [facility] 11/16/19 24 10:47AM 11:15AM Overweight Insurance Includes: Active Insurance Policies Plan Name Member ID Group # Subscriber Relationship Effect reji Dates 1 - PRIME [id number] Conrado Wilks Self Clinical Notes Includes: Clinical Notes from this encounter * Progress note Date Encounter Last Documented by 11/16/2023 NEW PROBLEM/EST PT Last document ed on 12/15/2023; 4:18 PM, Max Gordon MD; [facility] Active Problems & Conditions - Joint [...] refills - Vitamin D (Ergocalciferol) 1.25 MG (91080 UT) Oral Capsule, conventional 90 days, 0 [...] Care Team - Tosha Clements Md - WALL CLEANER
--- OUTSIDE RECORDS SUMMARY | 2024-08-28 09:09 | XMS_ITS | Clinical Summary ---
Author Organization [facility] , [facility] Address [address] [place] [id number] Phone Care Team Providers Care [facility] Manager Name Role Phone Heidi GARCIA, Max Unavailable [phone] Starr Garcia, Tosha Unavailable [phone] Reason for Visit and Chief Complaint Psychiatric Problems Includes: Problems addressed during this encounter and other active Problems All Visits Onset Date Resolved Date Provider Condition S tatus Joint Pain in Both Knees 11/16/2023 Max cannon MD Active Last Documented On 4 10:48AM ; [place], [facility] Joint Pain in the Left Knee 02/13/2023 Vinny Grewal PA-C Active Last Documented On 3 10:15AM ; [facility], [facility] Plan of Treatment No Plan of Treatment [...] Documented On 4 10:48AM By Lissa FRANCISCO [facility], [facility] rOPINIRole HCl 2 MG Oral Tablet 10/04/2023 Provider: Felicitas Saini NP Diagnosis: Last Documented On 4 10:48AM By Lissa Hernandez ; [facility], [facility] Vitamin D (Ergocalciferol) 1 .25 MG (58770 UT) Oral Capsule, conventional 09/27/2023 Provider: ARLENE ELIAS Diagnosis: Last Documented On 4 10:48AM By Lissa Hernandez ; [facility], [facility] Topiramate 25 MG Oral Tablet 08/10/2023 Provider: Tosha Clements Md Diagnosis: Last Documented On 4 10:48AM By Lissa Hernandez ; [place], [facility] buPROPion HCl ER (XL) 150 MG Oral Tablet, extended-release 24 hour 08/10/2023 Provider: Tosha zepeda Md Diagnosis: Last Documented On 4 10:48AM By Lissa Hernandez ; [facility] Esomeprazole Magnesium 40 MG Oral Capsule, delayed-release 07/29/2023 Provider: Tosha Clements Md Diagnosis: Last Documented On 4 10:48AM By Lissa Hernandez ; [facility] Lisinopril-hydroCHLOROthiazi de 10-12.5 MG Oral Tablet 07/05/2023 Provider: Tosha Clements Md Diagnosis: Last Documented On 4 10:48AM By Lissa Hernandez ; [place], [facility] Cyclobenzaprine HCl 10 MG Oral Tablet 07/04/2023 Pro vider: Diagnosis: Last Documented On 4 10:48AM By Lissa Hernandez ; [facility] Medications Administered Includes: Administered Medications [...] Last Documented On 4 10:48AM ; [facility] penicillAMINE Allergy 02/13/2023 Activ e Last Documented On 4 10:48AM ; [facility] Encounters Encounter Provider Location Date Check-In Time Check-Out Time Diagnosis Psychiatric Max Gordon MD Surgery 3 04/10/2023 8:44AM 11:59PM Insurance Includes: Active Insurance Policies Plan Name Member ID Group # Subscriber Relationship Effect reji Dates - [id number] Conrado Chambers Clinical Notes Includes: Clinical Notes from this encounter No Clinical Notes Recorded
--- OUTSIDE RECORDS SUMMARY | 2024-08-28 09:10 | XMS_ITS | Continuity of Care Document ---
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 7 Family Prac Team 1) [facility](87 Family Prac Team 1) OUTPATIENT [id number] DARRION Mazariegos 05/23 Released with Work/Duty Limitations [facility](8 7 Family Prac Team 1) [facility](87 Family Prac Team 1) OUTPATIENT [id number] Monthly 4T review NIRMAL MEREDITH 07/31 Released w/o Limitations [facility](8 7 Family Prac Team 1) [facility](87 Specialty ) OUTPATIENT [id number] retirem ent ELIN Godwin 08/08 Released w/o Limitations [facility](8 7 Special ty) [facility](87 Family Prac Team 1) TELE CONSULT [id number] Out-of- State ReferNIRMAL Hannon 10/21 [facility](8 7 Family Prac Team 1) [facility] Outpatient Encounter [id number] 09/03 [place] [facility] Outpatient Encounter [id number] 09/04 [place] [facility] Outpatient Encounter [id number] 09/05 [place] [facility] Outpatient Encounter [id number] 09/06 [place] [facility] HC PRO PHONE CALL 11-20 MIN [id number] Diagnos is: ICD-10- CM Z71.0 Prsn encntr hlth serv to consult on behalf of another person LEANDRA KINGBIBIANA Tunde 09/07 [place] [facility] Outpatient Encounter [id number] 09/07 [place] [facility] HC PRO PHONE CALL 21-30 MIN [id number] Diagnos is: ICD-10- CM Z02.89 Encount er for other adminis trative examina tions STARRCat KINGBIBIANA Tunde 09/10 [place] [facility] Outpatient Encounter [id number] 09/14 [place] [facility] Outpatient Encounter [id number] 09/18 [place] [facility] CASE MANAGEMENT [id number] Diagnos is: ICD-10- CM Z71.89 Other specifi ed work counselor NIKITA Arce 09/18 [place] [facility] OFFICE O/P NEW MOD 45 MIN [id number] Diagnos is: ICD-10- CM I10 Essenti al (primar y) hyperte nsSCOUT Lozano 09/18 [place] [facility] PSYTX W PT 45 MINUTES [id number] Diagnos is: ICD-10- CM F41.9 Anxiety disorde r, unspeci fied MEY COUGHLIN 09/18 [place] [facility] Outpatient Encounter [id number] 09/20 [place] [facility] OFF/OP EST MAY X REQ PHY/QHP [id number] Diagnos is: ICD-10- CM M54.59 Other low back pain YELENA TRAN 09/26 [place] [facility] Outpatient Encounter [id number] 09/27 [place] [facility] Outpatient Encounter [id number] 09/27 [place] [facility] Outpatient Encounter [id number] 09/27 [place] [facility] Outpatient Encounter [id number] 09/27 [place] [facility] Outpatient Encounter [id number] 09/28 [place] [facility] Outpatient Encounter [id number] 10/04 [place] [facility] Outpatient Encounter [id number] 10/08 [place] [facility] Outpatient Encounter [id number] 10/15 [place] [facility] PT EVAL MOD COMPLEX 30 MIN [id number] Diagnos is: ICD-10- CM E66.9 Obesity , unspeci ZACARIAS Ramos 10/23 [place] [facility] Outpatient Encounter [id number] 10/25 [place] [facility] HC PRO PHONE CALL 5-10 MIN [id number] Diagnos is: ICD-10- CM Z71.0 Prsn encntr hlth serv to consult on behalf of another person LEANDRA KINGBIBIANA Tunde 10/25 [place] [facility] Outpatient Encounter [id number] 11/16 [place] HC PRO PHONE CALL 5-10 MIN [id number] Diagnos is: ICD-10- CM Z71.89 Other specifi ed work counselor edita ROLO PORTILLO A 11/16 [place] [facility] Outpatient Encounter [id number] 12/04 [place] [facility] HC PRO PHONE CALL 21-30 MIN [id number] Diagnos is: ICD-10- CM F41.9 Anxiety disorde r, unspeci fied COUGHLIN,MEY N 12/04 [place] [facility] HC PRO PHONE CALL 5-10 MIN [id number] Diagnos is: ICD-10- CM R26.2 Difficu lty in walking , not elsewhe re classif ied SULAIMAN RODRIGES S 01/24 [place] [facility] Outpatient Encounter [id number] 03/15 [place] Outpatient Encounter [id number] SHABBIR PINO 03/19 [place] Outpatient Encounter [id number] 03/20 [place] SELF-MGMT EDUC & TRAIN 1 [place] [id number] Diagnos is: ICD-10- CM G47.33 Obstruc tive sleep apnea (adult) ([facility] aisha) GÓMEZ DIAZ JR 03/21 [place] [facility] PH1 ASSMT&MGMT NQHP [id number] Diagnos is: ICD-10- CM G47.33 Obstruc tive sleep apnea (adult) ([facility] aisha) GÓMEZ DIAZ JR 06/21 [place] [facility] Outpatient Encounter [id number] 06/28 [place] [facility] Procedures Combined list of: 1) Procedures from Department of Veterans Affairs facilities [facility], not all [facility] non-surgical procedures are included; 2) All procedures from the Department of Defense facilities. Procedure Procedure Type Code Date Perfomer Comments [facility] e ECG 12-Lead ECG 12-Lead 02140 008 DARRION EDGE NSR: No abnormalities noted on EKG [facility] Services Provided On An Emergency Basis In The Office 007 NGUYỄN ELLSWORTH [facility] Screening Test Of Visual Acuity, Quantitative, Bilateral Screening Test Of Visual Acuity, Quantitative, Bilateral 48206 007 CHEIKH KELLY [facility] Physical Medicine Physical Therapy Re-Evaluation Physical Medicine Physical Therapy Re-Evaluation 10710 007 ESTUARDO SCHMIDT Phys Therapy Education Self Care Training - Per 15 Minutes Phys Therapy Education Self Care Training - Per 15 Minutes 63109 007 ESTUARDO SCHMIDT Modalities Heat Hot Packs Modalities Heat Hot Packs 15789 007 KRYSTLE FINLEY [facility] Physical Therapy: ___ Se ion Segments, 15 Minutes Each Physical Therapy: ___ Session Segments, 15 Minutes Each 17633 007 KRYSTLE FINLEY [facility] PT A e ment Kinetic Training Additional 15 Minutes PT Assessment Kinetic Training Additional 15 Minutes 26696 007 EMPERATRIZ BRITO Modalities Heat Hot Packs Modalities Heat Hot Packs 53932 007 EMPERATRIZ BRITO Physical Therapy: ___ Se ion Segments, 15 Minutes Each Physical Therapy: ___ Session Segments, 15 Minutes Each 43616 007 EMPERATRIZ BRITO Traction Pelvic Traction Pelvic 20355 007 STEF BELLA Modalities Heat Hot Packs Modalities Heat Hot Packs 15230 007 STEF BELLA PT A e ment Kinetic Training Additional 15 Minutes PT Assessment Kinetic Training Additional 15 Minutes 46069 007 STEF BELLA Physical Therapy: ___ Se ion Segments, 15 Minutes Each Physical Therapy: ___ Session Segments, 15 Minutes Each 18312 007 STEF BELLA Determination Of Refractive State Determination Of Refractive State 67740 007 KIRSTIE SINGER Ophthalmological New Patient Start Comprehensive Care Ophthalmological New Patient Start Comprehensive Care 50322 007 KIRSTIE SINGER PT A e ment Kinetic Training Initial 30 Minutes PT Assessment Kinetic Training Initial 30 Minutes 41710 007 EMPERATRIZ BRITO Modalities Heat Hot Packs Modalities Heat Hot Packs 49173 007 EMPERATRIZ BRITO Traction Pelvic Traction Pelvic 71289 007 EMPERATRIZ BRITO Visual Agustin Test Limited Examination Visual Agustin Test Limited Examination 59572 007 VIGNESH BOWEN [employer] Fitting Monofocals (Not For Aphakia) [employer] Fitting Monofocals (Not For Aphakia) 78329 007 VIGNESH BOWEN [employer] 58256 09/30 007 VIGNESH BOWEN Physical Therapy: ___ Se ion Segments, 15 Minutes Each Physical Therapy: ___ Session Segments, 15 Minutes Each 61734 007 EMPERATRIZ BRITO Physical Medicine Physical Therapy Re-Evaluation Physical Medicine Physical Therapy Re-Evaluation 63492 007 ESTUARDO SCHMIDT Phys Therapy Education Self Care Training - Per 15 Minutes Phys Therapy Education Self Care Training - Per 15 Minutes 23622 007 ESTUARDO SCHMIDT Modalities Cryotherapy Cold Packs Modalities Cryotherapy Cold Packs 85245 007 DARIANA AGUIAR DoD Modalities Ultrasound Modalities Ultrasound 97425 007 DARIANA AGUIAR Physical Therapy: ___ Se ion Segments, 15 Minutes Each Physical Therapy: ___ Session Segments, 15 Minutes Each 73405 007 DARIANA AGUIAR Modalities Electrical Stimulation Modalities Electrical Stimulation 37658 007 DARIANA AGUIAR Modalities Heat Hot Packs Modalities Heat Hot Packs 17509 007 DARIANA AGUIAR Modalities Ultrasound Modalities Ultrasound 86324 007 DARIANA AGUIAR Modalities Heat Hot Packs Modalities Heat Hot Packs 18579 007 DARIANA AGUIAR Modalities Cryotherapy Cold Packs Modalities Cryotherapy Cold Packs 86391 007 DARIANA AGUIAR Physical Therapy: ___ Se ion Segments, 15 Minutes Each Physical Therapy: ___ Session Segments, 15 Minutes Each 42871 007 DARIANA AGUIAR Modalities Electrical Stimulation Modalities Electrical Stimulation 52908 007 DARIANA AGUIAR Modalities Heat Hot Packs Modalities Heat Hot Packs 78610 007 DARIANA AGUIAR Modalities Cryotherapy Cold Packs Modalities Cryotherapy Cold Packs 22541 007 DARIANA AGUIAR Modalities Ultrasound Modalities Ultrasound 64249 007 DARIANA AGUIAR Physical Therapy: ___ Se ion Segments, 15 Minutes Each Physical Therapy: ___ Session Segments, 15 Minutes Each 79959 007 DARIANA AGUIAR Modalities Electrical Stimulation Modalities Electrical Stimulation 75764 007 DARIANA AGUIAR Modalities Heat Hot Packs Modalities Heat Hot Packs 98644 007 DARIANA AGUIAR Modalities Ultrasound Modalities Ultrasound 55272 007 DARIANA AGUIAR Modalities Cryotherapy Cold Packs Modalities Cryotherapy Cold Packs 10363 007 DARIANA AGUIAR Modalities Electrical Stimulation Modalities Electrical Stimulation 80691 007 DARIANA AGUIAR Physical Therapy: ___ Se ion Segments, 15 Minutes Each Physical Therapy: ___ Session Segments, 15 Minutes Each 27618 007 DARIANA AGUIAR Modalities Heat Hot Packs Modalities Heat Hot Packs 93454 007 DARIANA AGUIAR Modalities Cryotherapy Cold Packs Modalities Cryotherapy Cold Packs 40799 007 DARIANA AGUIAR Modalities Ultrasound Modalities Ultrasound 88736 007 DARIANA AGUIAR Physical Therapy: ___ Se ion Segments, 15 Minutes Each Physical Therapy: ___ Session Segments, 15 Minutes Each 15310 007 DARIANA AGUIAR Modalities Electrical Stimulation Modalities Electrical Stimulation 01492 007 DARIANA AGUIAR Modalities Electrical Stimulation Modalities Electrical Stimulation 73454 007 DARIANA AGUIAR Traction Pelvic Traction Pelvic 22022 007 DARIANA AGUIAR Modalities Ultrasound Modalities Ultrasound 99158 007 DARIANA AGUIAR Physical Therapy: ___ Se ion Segments, 15 Minutes Each Physical Therapy: ___ Session Segments, 15 Minutes Each 36638 007 DARIANA AGUIAR Modalities Heat Hot Packs Modalities Heat Hot Packs 28075 007 DARIANA AGUIAR Modalities Electrical Stimulation Modalities Electrical Stimulation 53831 007 DARIANA AGUIAR Modalities Ultrasound Modalities Ultrasound 26823 007 DARIANA AGUIAR Traction Pelvic Traction Pelvic 18752 007 DARIANA AGUIAR PT A e ment Kinetic Training Initial 30 Minutes PT Assessment Kinetic Training Initial 30 Minutes 69545 007 DARIANA AGUIAR Modalities Heat Hot Packs Modalities Heat Hot Packs 08711 007 DARIANA AGUIAR Physical Medicine Physical Therapy Evaluation Physical Medicine Physical Therapy Evaluation 99969 007 ESTUARDO SCHMIDT [facility] Phys Therapy Education Self Care Training - Per 15 Minutes Phys Therapy Education Self Care Training - Per 15 Minutes 13324 007 ESTUARDO SCHMIDT [facility] Surgery Of Salivary Glands and Ducts Surgery Of Salivary Glands and Ducts 90340 007 LUCAS HARRIS salivary gland surgery [facility] Medical Nutrition Therapy Group (2 or More Individual(s)) Medical Nutrition Therapy Group (2 or More Individual(s)) 67455 006 GERMAN NARANJO [facility] Services Provided On An Emergency Basis In The Office 006 DARRION EDGE [facility] Oral Surgery Tooth Extraction Oral Surgery Tooth Extraction 18373 991 LUCAS HARRIS wisdom teeth x 4 [facility] Social History Combined list of available smoking, tobacco, and other social history from Department of Defense and Veterans Affairs facilities. Social History Type Response Date Comment Sour e Tobacco smoking status NHIS V9 QUIT TOBACCO >12 MO and <7 YRS AGO 11/16/2010 [facility] History of tobacco use V9 LIFETIME NON-USER OF TOBACCO 02/02/2010 [facility] History of tobacco use V9 QUIT TOBACCO >12 MO and <7 YRS AGO 12/20/2007 [facility] This section is an empty social history section. [facility] Advance Directives List of completed, amended, or rescinded Advance Directives on record at Department of Veterans Affairs facilities. An actual copy of the Directive is not included. Date Advance Directive Provider Source 09/19/2023 ADVANCE DIRECTIVE DISCUSSION [facility]
--- OUTSIDE RECORDS SUMMARY | 2024-08-28 09:10 | XMS_ITS | Clinical Summary ---
Author Organization [facility] , [facility] Address [address] [place] [address] Phone Care Team Providers Care Director Sales Name Role Phone Heidi GARCIA, Max Unavailable [phone] Starr Garcia, Tosha Unavailable [phone] Reason for Visit and Chief Complaint The Chief Complaint is: Left knee pain Problems Includes: Problems addressed during this encounter and other active Problems All Visits Onset Date Resolved Date Provider Condition S tatus Joint Pain in Both Knees 11/16/2023 Max cannon MD Active Last Documented On 4 10:48AM ; [facility], [facility] Joint Pain in the Left Knee 02/13/2023 Vinny Grewal PA-C Active Last Documented On 3 10:15AM ; [facility], [facility] Plan of Treatment Patient is a good [...] - Last Documented On 02/28/2023 9:08AM ; [facility], [facility] Instructions to patient Lose weight Last Documented On 3 8:53AM ; [facility], [facility] Assessments Includes: Assessments from this encounter Findings - Overweight - Last Documented On 02/28/2023 9:08AM ; [facility], [facility] Left knee mechanical locking and swelling loss of motion pain related to medial lateral meniscus tears complex type mild chondromalacia failed conservative treatment - Last Documented On 02/28/2023 9:08AM ; [facility], [facility] Instructions Includes: Instructions from this encounter Instructions to patient Lose weight Last Documented On 3 8:53AM ; [facility] Medical Equipment - Implanted Devices Includes: Current Devices No Medical Equipment Recorded Medications Includes: Medications discussed during this encounter and other current Medications Current Medications (continue as prescribed) Esomeprazole Magnesium 40 MG Oral Capsule, delayed-release 10/04/2023 Provider: Tosha Clements Md Diagnosis: Last Documented On 4 10:48AM By Lissa Hernandez ; [facility], [facility] rOPINIRole HCl 2 MG Oral Tablet 10/04/2023 Provider: Felicitas Saini NP Diagnosis: Last Documented On 4 10:48AM By Lissa Hernandez ; [facility] Vitamin D (Ergocalciferol) 1 .25 MG (10132 UT) Oral Capsule, conventional 09/27/2023 Provider: ARLENE ELIAS Diagnosis: Last Documented On 4 10:48AM By Lissa Hernandez ; [facility] Topiramate 25 MG Oral Tablet 08/10/2023 Provider: Tosha Clements Md Diagnosis: Last Documented On 4 10:48AM By Lissa Hernandez ; [facility] buPROPion HCl ER (XL) 150 MG Oral Tablet, extended-release 24 hour 08/10/2023 Provider: Tosha zepeda Md Diagnosis: Last Documented On 4 10:48AM By Lissa Hernandez ; [facility] Esomeprazole Magnesium 40 MG Oral Capsule, delayed-release 07/29/2023 Provider: Tosha Clements Md Diagnosis: Last Documented On 4 10:48AM By Lissa Hernandez ; [facility] Lisinopril-hydroCHLOROthiazi de 10-12.5 MG Oral Tablet 07/05/2023 Provider: Tosha Clements Md Diagnosis: Last Documented On 4 10:48AM By Lissa Hernandez ; [facility] Cyclobenzaprine HCl 10 MG Oral Tablet 07/04/2023 Pro vider: Diagnosis: Last Documented On 4 10:48AM By Lissa Hernandez ; [facility], [facility] Past Medications on file traMADol HCl 50 MG Oral Tablet 11/16/2023 - 01/15/2024 Provider: Max Gordon MD Diagnosis: 1 - 2 Q HS PRN Last Documented On 4 11:21AM By Max Gordon ; [facility], [facility] traMADol HCl 50 MG Oral Tablet 04/10/2023 - 04/20/2023 Provider: Max Gordon MD Diagnosis: 1-2 po q 4-6h PRN for breakthrough post op pain Last Documented On 3 8:35AM By Max Gordon ; [facility], [facility] Ondansetron HCl 4 MG Oral Tablet 04/10/2023 - 04/24/20 Provider: Max Gordon MD Diagnosis: 1-2 p o q 6-8h as needed for nausea Last Documented On 3 8:35AM By Max Gordon ; [facility], [facility] Aspirin Adult Low Strength 8 1 MG Oral Tablet Delayed Release 04/10/2023 - 05/25/2023 Provider: Max Gordon MD Diagnosis: twice a day Last Documented On 3 8:35AM By Max Gordon ; [facility], [facility] HYDROcodone-Acetaminophen 5- 325 MG Oral Tablet 04/10/2023 - 05/10/2023 Provider: Max Gordon MD Diagnosis: [id number] for post op pain Last Documented On 3 8:50AM By Max Gordon ; [facility], [facility] Medications Administered Includes: Administered Medications from this encounter No Administered Medications Recorded Vital Signs Includes: Vital Signs from this encounter Vital Name 02/28/2023 08:53A Height (in) 68 Weight (lb) 345 Body Mass Index 52.5 Body Surface Area 2.6 Note: am Last Documented: On 02/28/2023 8:53AM ; [facility], [facility] Results Includes: Results discussed during this encounter No Results Recorded For Specified Dates History of Present Illness Includes: History of Present Illness from this encounter DWIGTH Wilks is a 52 year old male. [...] 02/13/2023 Last Documented On 3 8:53AM ; [facility], [facility] Tobacco non-user 02/13/2023 Last Documented On 3 8:53AM ; [facility], [facility] No caffeine use 02/13/2023 Last Documented On 3 8:53AM ; [facility], [facility] No recent change in diet 02/13/2023 Last Documented On 3 8:53AM ; [facility] Not a current smoker. 02/13/2023 Last Documented On 3 8:53AM ; [facility], [facility] Not exercising regularly 02/13/2023 Last Documented On 3 8:53AM ; [facility], [facility] Not using drugs 02/13/2023 Last Documented On 3 8:53AM ; [facility], [facility] Smoking Status Unknown Procedures and Surgical History Includes: Procedures from this encounter Procedures Code Diagnosis Performing Provider Service L ocation Service Date use of tobacco assessment performed 1000F Last Documented On 3 8:53AM ; [facility], [facility] review of medications documented 1160F Last Documented On 3 8:53AM ; [facility], [facility] an X-ray was performed [facility] [id number] Last Documented On 3 8:53AM ; [facility], [facility] Surgical History Last Updated History of back surgery 02/13/2023 Last Documented On 3 8:53AM ; [facility], [facility] Past Surgical History: Right Leg-Blood C lot ~right hand ~wisdom teeth 02/13/2023 Last Documented On 3 8:53AM ; [facility], [facility] Medical History Includes: Medical History addressed during this encounter Description Last Updated History of arthritis 02/13/2023 Last Documented On 3 8:53AM ; [facility], [facility] History of depression 02/13/2023 Last Documented On 3 8:53AM ; [facility], [facility] History of Heartburn / Acid Reflux 02/13 Last Documented On 3 8:53AM ; [facility], [facility] History of History of Blood Clots 2022 Last Documented On 3 8:53AM ; [facility], [facility] History of Hypertension 02/13/2023 Last Documented On 3 8:53AM ; [facility], [facility] History of Sleep Apnea 02/13/2023 Last Documented On 3 8:53AM ; [facility], [facility] History of Thyroid Disease 02/13/2023 Last Documented On 3 8:53AM ; [facility], [facility] Family History Includes: Family History addressed during this encounter Description Last Updated Family history of cancer father ~mother 02/13/2023 Last Documented On 3 8:53AM ; [facility], [facility] Family history of heart disease both gra ndparents 02/13/2023 Last Documented On 3 8:53AM ; [facility], [facility] Review of Systems Includes: Review of Systems [...] Active Last Documented On 4 10:48AM ; [facility] penicillAMINE Allergy 02/13/2023 Activ e Last Documented On 4 10:48AM ; [facility] Encounters Encounter Provider Location Date Check-In Time Check-Out Time Diagnosis Follow Up Max Gordon MD [facility] 3 8:48AM 9:06AM Overweight Insurance Includes: Active Insurance Policies Plan Name Member ID Group # Subscriber Relationship Effect reji Dates 1 - PRIME [id number] Conrado Wilks Self Clinical Notes Includes: Clinical Notes from this encounter * Progress note Date Encounter Last Documented by 02/28/2023 Follow Up Last documented on 02/28/2023; 9:08 AM, Max Gordon MD; [facility] Active Problems & Conditions - [...] Tests Imaging: X-Ray: An X-ray was performed [facility]. Counseling/Education - Lose weight Plan Patient is [...] Care Team - Tosha Clements Md - OUTPATIENT ADMITTING CLERK
--- OUTSIDE RECORDS SUMMARY | 2024-08-28 09:10 | XMS_ITS ---
Author Organization [facility] , [facility] Address [address] [place] [address] Phone Care Team Providers Care Manager Infrastructure Name Role Phone Heidi GARCIA, Max Unavailable [phone] Starr Garcia, Tosha Unavailable [phone] Problems Includes: Active, inactive, and resolved Problems All Visits Onset Date Resolved Date Provider Condition S tatus Joint Pain in Both Knees 11/16/2023 Max cannon MD Active Last Documented On 4 10:48AM ; [facility] Joint Pain in the Left Knee 02/13/2023 Vinny Grewal PA-C Active Last Documented On 3 10:15AM ; [facility], [facility] Plan of Treatment Pending Tests Order Diagnosis Results Due Ordering P rovider Radiology - MRI MRI Knee Pain in left knee 02/27/23 Roxie Grewal PA-C Last Documented On 3 12:07PM ; [facility], [facility] Instructions to patient Lose weight Last Documented On 4 11:02AM ; [facility], [facility] Lose weight Last Documented On 3 10:11AM ; [facility], [facility] Lose weight Last Documented On 3 8:53AM ; [facility], [facility] Lose weight Last Documented On 3 10:16AM ; [facility], [facility] Assessments Includes: Assessments for all patient encounters Findings Encounter Date Overweight NEW PROBLEM/EST PT with Max Gordon MD 11/16/2023 Last Documented On 4 4:18PM ; [facility] Overweight Post Op with Vinny Grewal PA-C 04/21/2023 Last Documented On 3 11:45AM ; [facility] Overweight Follow Up with Max Gordon MD 1 Last Documented On 3 9:08AM ; [facility], [facility] Overweight Non Physician Specified with Aj Grewal PA-C 02/13/2023 Last Documented On 3 12:07PM ; [facility], [facility] Instructions Includes: Instructions for all patient encounters Instructions to patient Lose weight Last Documented On 4 11:02AM ; [facility] Lose weight Last Documented On 3 10:11AM ; [facility] Lose weight Last Documented On 3 8:53AM ; [facility] Lose weight Last Documented On 3 10:16AM ; [facility], [facility] Medical Equipment - Implanted Devices Includes: Current and historical Devices No Medical Equipment Recorded Medications Includes: Current and historical Medications Current Medications (continue as prescribed) Esomeprazole Magnesium 40 MG Oral Capsule, delayed-release 10/04/2023 Provider: Tosha Clements Md Diagnosis: Last Documented On 4 10:48AM By Lissa Hernandez ; [facility], [facility] rOPINIRole HCl 2 MG Oral Tablet 10/04/2023 Provider: Felicitas Saini NP Diagnosis: Last Documented On 4 10:48AM By Lissa Hernandez ; [facility], [facility] Vitamin D (Ergocalciferol) 1 .25 MG (46057 UT) Oral Capsule, conventional 09/27/2023 Provider: ARLENE ELIAS Diagnosis: Last Documented On 4 10:48AM By Lissa Hernandez ; [facility], [facility] Topiramate 25 MG Oral Tablet 08/10/2023 Provider: Tosha Clements Md Diagnosis: Last Documented On 4 10:48AM By Lissa Hernandez ; [facility], [facility] buPROPion HCl ER (XL) 150 MG Oral Tablet, extended-release 24 hour 08/10/2023 Provider: Tosha zepeda Md Diagnosis: Last Documented On 4 10:48AM By Lissa Hernandez ; [facility], [facility] Esomeprazole Magnesium 40 MG Oral Capsule, delayed-release 07/29/2023 Provider: Tosha Clements Md Diagnosis: Last Documented On 4 10:48AM By Lissa Hernandez ; [facility], [facility] Lisinopril-hydroCHLOROthiazi de 10-12.5 MG Oral Tablet 07/05/2023 Provider: Tosha Clements Md Diagnosis: Last Documented On 4 10:48AM By Lissa Hernandez ; [facility], [facility] Cyclobenzaprine HCl 10 MG Oral Tablet 07/04/2023 Pro vider: Diagnosis: Last Documented On 4 10:48AM By Lissa Hernandez ; [facility], [facility] Past Medications on file traMADol HCl 50 MG Oral Tablet 11/16/2023 - 01/15/2024 Provider: Max Gordon MD Diagnosis: 1 - 2 Q HS PRN Last Documented On 4 11:21AM By Max Gordon ; [facility], [facility] traMADol HCl 50 MG Oral Tablet 04/10/2023 - 04/20/2023 Provider: Max Gordon MD Diagnosis: 1-2 po q 4-6h PRN for breakthrough post op pain Last Documented On 3 8:35AM By Max Gordon ; [facility], [facility] Ondansetron HCl 4 MG Oral Tablet 04/10/2023 - 04/24/20 Provider: Max Gordon MD Diagnosis: 1-2 p o q 6-8h as needed for nausea Last Documented On 3 8:35AM By Max Gordon ; [facility], [facility] Aspirin Adult Low Strength 8 1 MG Oral Tablet Delayed Release 04/10/2023 - 05/25/2023 Provider: Max Gordon MD Diagnosis: twice a day Last Documented On 3 8:35AM By Max Gordon ; [facility], [facility] HYDROcodone-Acetaminophen 5- 325 MG Oral Tablet 04/10/2023 - 05/10/2023 Provider: Max Gordon MD Diagnosis: [id number] for post op pain Last Documented On 3 8:50AM By Max Gordon ; [facility], [facility] Cyclobenzaprine HCl 10 MG Oral Tablet 02/07/2023 - Provider: Diagnosis: Last Documented On 4 10:48AM By Lissa Hernandez ; [facility], [facility] rOPINIRole HCl 2 MG Oral Tablet 12/01/2022 - Provider: Diagnosis: Last Documented On 4 10:48AM By Lissa Hernandez ; [facility] [place] Esomeprazole Magnesium 40 MG Oral Capsule Delayed Release 11/25/2022 - 11/16/2023 Provider: Tosha Clements Md Diagnosis: Last Documented On 4 10:48AM By Lissa Hernandez ; [facility] Venlafaxine HCl ER 75 MG Ora l Capsule Extended Release 24 Hour 11/25/2022 - 11/16/2023 Provider: Tosha Clements Md Diagnosis: Last Documented On 4 10:48AM By Lissa Hernandez ; [facility] [place] Lisinopril-hydroCHLOROthiazi de 10-12.5 MG Oral Tablet 07/14/2022 - 11/16/2023 Provider: Tosha Clements Md Diagnosis: Last Documented On 4 10:48AM By Lissa Hernandez ; [facility] [place] Medications Administered Includes: Administered Medications in patient's chart No Administered Medications Recorded Vital Signs Includes: Vital Signs from 08/29/2023 through 08/28/2024 Vital Name 11/16/2023 11:01A Height (in) 68 Weight (lb) 350 Body Mass Index 53.2 Body Surface Area 2.6 Note: BNA Last Documented: On 11/16/2023 11:01A M ; [facility] [place] [facility] Results Includes: Results from 08/29/2023 through 08/28/2024 No Results Recorded For Specified Dates History of Present Illness History of Present Illness not supported for this document type No History of Present Illness Recorded Social History Description Last Updated Alcohol use: 2 drinks or less per day Last Documented On 4 4:18PM ; [facility] [place] [facility] Former smoker 11/16/2023 Last Documented On 4 4:18PM ; [facility] [place] Never used drugs 11/16/2023 Last Documented On 4 4:18PM ; [facility] Alcohol use 02/13/2023 Last Documented On 3 12:07PM ; [facility], [facility] Tobacco non-user 02/13/2023 Last Documented On 3 12:07PM ; [facility], [facility] No caffeine use 02/13/2023 Last Documented On 3 12:07PM ; [facility], [facility] No recent change in diet 02/13/2023 Last Documented On 3 12:07PM ; [facility], [facility] Not a current smoker. 02/13/2023 Last Documented On 3 12:07PM ; [facility], [facility] Not exercising regularly 02/13/2023 Last Documented On 3 12:07PM ; [facility], [facility] Not using drugs 02/13/2023 Last Documented On 3 12:07PM ; [facility], [facility] Smoking Status Unknown Procedures and Surgical History Includes: Procedures from 08/29/2023 through 08/28/2024 Procedures Code Diagnosis Performing Provider Service Location Service Date DRAIN/INJECT, JOINT/BURSA (RIGHT) Unilateral primary osteoarthritis, right knee Max Gordon MD [facility] 11/16/2023 Last Documented On 4 2:47PM ; [facility], [facility] Injection, betamethasone acetate 6mg per cc and betamethason [id number] Unilateral primary osteoarthritis, right knee Max Gordon MD [facility] 11/16/2023 Last Documented On 4 2:47PM ; [facility], [facility] X-RAY EXAM OF KNEE 1 OR 2 VIEWS (RIGHT) [id number] Unilateral primary osteoarthritis, right knee Max Gordon MD [facility] 11/16/2023 Last Documented On 4 2:47PM ; [facility], [facility] X-RAY EXAM OF KNEE 1 OR 2 VIEWS (LEFT) [id number] Unilateral primary osteoarthritis, left knee Max Gordon MD [facility] 11/16/2023 Last Documented On 4 2:47PM ; [facility] Surgical History Last Updated History of back surgery 02/13/2023 Last Documented On 3 12:07PM ; [facility] Past Surgical History: Right Leg-Blood C lot ~right hand ~wisdom teeth 02/13/2023 Last Documented On 3 12:07PM ; [facility] Medical History Includes: Medical History in patient's chart Description Last Updated History of arthritis 02/13/2023 Last Documented On 3 12:07PM ; [facility] History of depression 02/13/2023 Last Documented On 3 12:07PM ; [facility] History of Heartburn / [...] Last Documented On 3 12:07PM ; [facility] Family History Includes: Family History in patient's chart Description Last Updated Maternal grandmother's history of diabet es mellitus 11/16/2023 Last Documented On 4 4:18PM ; [facility] Maternal history of diabetes mellitus Last Documented On 4 4:18PM ; [facility] Maternal history of systemic hypertensio n 11/16/2023 Last Documented On 4 4:18PM ; [facility] Paternal history of family history of ca ncer 11/16/2023 Last Documented On 4 4:18PM ; [facility] Family history of cancer father ~mother 02/13/2023 Last Documented On 3 12:07PM ; [facility] Family history of heart disease both gra ndparents 02/13/2023 Last Documented On 3 12:07PM ; [facility] Review of Systems Review of Systems [...] Documented On 4 10:48AM ; [facility] penicillAMINE Allergy 02/13/2023 Activ e Last Documented On 4 10:48AM ; [facility] Encounters Includes: Encounters from 08/29/2023 through 08/28/2024 Encounter Provider Location Date Check-In Time Check-Out Time Diagnosis NEW PROBLEM/EST PT Max Gordon MD [facility] 11/16/19 24 10:47AM 11:15AM Overweight Insurance Includes: Active Insurance Policies Plan Name Member ID Group # Subscriber Relationship Effect reji Dates 1 - PRIME [id number] Conrado Wilks Self Clinical Notes Includes: Signed Clinical Notes starting from 04/14/2022 * Progress note Date Encounter Last Documented by 11/16/2023 NEW PROBLEM/EST PT Last document ed on 12/15/2023; 4:18 PM, Max Gordon MD; [facility] Active Problems & Conditions - Joint [...] refills - Vitamin D (Ergocalciferol) 1.25 MG (26011 UT) Oral Capsule, conventional 90 days, 0 [...] Care Team - Tosha Clements Md - [employer]
[2024-08-28 10:03] LABS: Anion Gap 7.5 mEq/L (5-15); Blood Urea Nitrogen 25 mg/dl (9-20); Carbon Dioxide 30 mmol/L (22.0-30.0); Chloride 105 mmol/L (98-107); Estimated Glomerular Filt Rate 100 ml/min (>60); GFR (African American) 121 ML/MIN (>60); Glucose 127 mg/dl (74-100); Magnesium 2.1 mg/dl (1.6-2.3); Potassium 4.5 mmoL/L (3.5-5.1); Sodium 138 mmol/L (136-145)
== END 2024-08-28 23:59 | disposition home or self-care (01) ==
LOC: LAB 09:07
PROVIDERS: PCP Family Medicine; Visit Provider Nurse Practitioner Family
DX: R53.83 Other fatigue (principal); I10 Essential (primary) hypertension; Z87.891 Personal history of nicotine dependence
CPT/HCPCS: 36415; 80048; 83735